=== PATIENT | female | born 1955 | race Caucasian/White ===

== ENCOUNTER → 2016-12-31 | Outpatient (CLI) | payer OTHER ==
[~2016-12-31] MED LIST: AMBIEN5 MG PO; CLIMARA PRO PA1 EACH TOP; COLACE100 MG PO; CORDARONE,PACE200 MG PO; DECADRON1 MG PO; DEPAKOTE EXTEN500 MG PO; EFFEXOR XR75 MG PO; ELAVIL10 MG; FIORICET PO; FIORINAL WITH1 EACH PO; KEPPRA500 MG PO; LOPRESSOR25 MG PO; MAXALT MLT10 MG PO; OSCAL + D500 MG PO; PEPCID20 MG PO; PHENERGAN25 M1 PO; RESTORIL30 MG PO; TAMBOCOR100 MG PO; THERA-VITE W/ B1 TAB PO; TOPROL XL25 MG PO; VIVISCAL PO; XARELTO20 MG PO
[2016-12-31 14:58] LABS: BASOPHIL % 0.2 %; EOSINOPHIL # 0.1 K/uL (0.0-0.5); EOSINOPHIL % 0.8 %; HEMATOCRIT 35.4 % (33.0-46.0); HEMOGLOBIN 11.9 g/dL (10.0-15.0); IMMATURE GRANULOCYTE % 0.3 %; LYMPHOCYTE # 1.9 K/uL (0.8-4.0); LYMPHOCYTE % 31.3 %; MCH 35.2 pg (27.0-34.0); MCHC 33.6 gm/dL (32.0-36.5); MCV 104.7 fl (83.0-98.0); MONOCYTE # 0.5 K/uL (0.0-1.0); MONOCYTE % 7.6 %; MPV 10.8 fl (9.4-12.4); NEUTROPHIL # (ANC) 3.7 K/uL (1.8-7.8); NEUTROPHIL % 59.8 %; NRBC % 0 /100WBC (0-0.00); PLATELET COUNT 185 K/uL (150-450); RBC 3.38 M/uL (3.50-5.50); RDW-CV 12.3 % (11.9-14.6); WBC 6.2 K/uL (4.0-11.0)
[2016-12-31 15:13] LABS: ALBUMIN 3.7 gm/dL (3.5-5.0); ANION GAP 12.4 (10.0-19.0); CALCIUM 8.2 mg/dL (8.5-10.5); POTASSIUM 4.4 mMol/L (3.7-5.1); TOTAL BILIRUBIN 0.4 mg/dL (0.0-1.5); TOTAL PROTEIN 6.8 g/dL (6.0-8.4)
== END | disposition disaster alternative care site (69) ==
LOC: GLAB 11-28 16:46
PROVIDERS: Psychiatry & Neurology Neurology
DX: G40.309 Generalized idiopathic epilepsy and epileptic syndromes, not intractable, without status epilepticus (principal)

== ENCOUNTER → 2017-02-15 | Outpatient (CLI) | payer OTHER ==
[2017-02-15 15:30] LABS: BASOPHIL % 0.2 %; EOSINOPHIL % 0.5 %; HEMATOCRIT 38.9 % (33.0-46.0); HEMOGLOBIN 13.1 g/dL (10.0-15.0); IMMATURE GRANULOCYTE % 0.2 %; LYMPHOCYTE # 2.3 K/uL (0.8-4.0); LYMPHOCYTE % 40.1 %; MCH 35.1 pg (27.0-34.0); MCHC 33.7 gm/dL (32.0-36.5); MCV 104.3 fl (83.0-98.0); MONOCYTE # 0.5 K/uL (0.0-1.0); MONOCYTE % 8.4 %; MPV 10.6 fl (9.4-12.4); NEUTROPHIL # (ANC) 2.9 K/uL (1.8-7.8); NEUTROPHIL % 50.6 %; NRBC % 0 /100WBC (0-0.00); PLATELET COUNT 185 K/uL (150-450); RBC 3.73 M/uL (3.50-5.50); RDW-CV 12.2 % (11.9-14.6); WBC 5.7 K/uL (4.0-11.0)
== END | disposition disaster alternative care site (69) ==
LOC: GLAB 14:55
PROVIDERS: Registered Nurse
DX: F41.9 Anxiety disorder, unspecified (principal)

== ENCOUNTER 2017-05-17 10:24 | Inpatient (IN) | payer OTHER ==
[~2017-05-17] VITALS: Ht 172.7 cm; Wt 56.8 kg
--- NOTE | ~2017-05-17 | CON ---
PATIENT'S NAME: GUANACO HUSSEIN [facility] AGE: 61 Y [address] ROOM: [place] [address] LOCATION: GICU ADMIT DATE: 05/17/2017 Consultation DISCHARGE DATE: FAMILY PHYSICIAN: Shelby Garcia APRN ATTENDING PHYSICIAN: Deedee Wade REFERRING PHYSICIAN: SUNIL MARION MD REFERRING PHYSICIAN: Dr. Wade. REASON FOR CONSULT: 1. Atrial fibrillation with uncontrolled ventricular rate. 2. Hypotension, requiring inotropic support. HISTORY OF PRESENT ILLNESS: Ms. Hussein is a pleasant 61-year-old female who was recently hospitalized and patient underwent surgery on 05/22/2017 with excision of right frontal tumor, possibly glioblastoma. The patient was recently hospitalized 1 week ago as she was noted to have recurrent falls and unsteadiness of gait. Further workup showed she had right frontal mass and subsequently she had surgery. The patient also has history of paroxysmal atrial fibrillation and she was on flecainide. The patient continued to have atrial fibrillation and hence flecainide was discontinued. Presently, she is in atrial fibrillation. Her blood pressure has been low and hence she has been on phenylephrine drip as well. She denied any chest pain. No history of palpitations. No history of increasing shortness of breath. She complained of headache. Cardiology was consulted in view of atrial fibrillation with rapid ventricular rate and hypotension. REVIEW OF SYSTEMS: The patient complained of headache. No history of diplopia. No history of nausea or vomiting or diarrhea or constipation. No history of fever. No history of chest pain. No history of difficulty breathing. The patient complained of unsteadiness of gait and history of recurrent falls. Review of other systems was essentially negative. PAST MEDICAL HISTORY: Paroxysmal atrial fibrillation, seizures, orthostatic hypotension. ALLERGIES: SHE IS ALLERGIC TO TOPAMAX. MEDICATIONS: As per MAR. FAMILY HISTORY: PATIENT'S NAME: GUANACO HUSSEIN [facility] AGE: 61 Y [address] ROOM: [place] [address] LOCATION: [facility] ADMIT DATE: 05/17/2017 Consultation DISCHARGE DATE: FAMILY PHYSICIAN: Shelby Garcia APRN ATTENDING PHYSICIAN: Deedee Wade Her mother had atrial fibrillation and her father was hypertensive and some of her siblings also have atrial fibrillation. SOCIAL HISTORY: The patient is . PERSONAL HISTORY: Nonsmoker. PHYSICAL EXAMINATION: GENERAL: She is awake, alert, and oriented and in no distress. VITAL SIGNS: Her pulse rate is 110 beats per minute, irregular. Blood pressure is 104/62, on phenylephrine 0.06 mcg/kg per minute. HEENT: The patient has dressing on right side of her forehead. Opening of her right eye is restricted. Oral mucosa is moist. NECK: No significant jugular venous distention is present. CARDIOVASCULAR: S1 and S2 are audible. They are irregular in rate and rhythm. RESPIRATORY: Bilateral vesicular breath sounds are audible. ABDOMEN: Soft, nontender. Bowel sounds are present. EXTREMITIES: Showed no significant pedal edema. NEUROLOGIC: The patient is awake, alert, and oriented. SKIN: Warm and dry. LABORATORY DATA: Sodium 140, potassium 3.8, chloride 103, CO2 32, BUN 13, creatinine 0.5, calcium 7.8. Albumin 2.4, globulin 3.3, AST 41, ALT 67, magnesium 2.4. White blood cell count 15.7, hemoglobin 11.1, platelet count 220. Telemetry monitoring tracings show atrial fibrillation with episodes of tachycardia with ventricular rate of 140 to 150 beats per minute. Presently on monitor, her heart rate is 116 per minute. Her most recent echocardiogram done on 06/30/2015 reported ejection fraction of 50% to 55%. Mild mitral regurgitation and mild tricuspid regurgitation was noted. ASSESSMENT: 1. Atrial fibrillation with rapid ventricular rate. 2. Hypotension on vasopressors. 3. History of hypertension. 4. Right frontal tumor status post surgery. 5. Leukocytosis. PLAN: In view of hypotension, beta-blockers are on hold. We will start the patient on digoxin for rate control. She was on flecainide in the past. However she PATIENT'S NAME: GUANACO HUSSEIN [facility] AGE: 61 Y [address] ROOM: [address] [place], [place] [address] LOCATION: [facility] ADMIT DATE: 05/17/2017 Consultation DISCHARGE DATE: FAMILY PHYSICIAN: Shelby Garcia APRN ATTENDING PHYSICIAN: Deedee Wade used to have atrial fibrillation and hence flecainide was discontinued. Hypotension is likely multifactorial including due to changes in intracranial pressure and leukocytosis suggestive of possible sepsis. We will also obtain 2D echocardiogram to evaluate left ventricular function in view of hypotension. The patient was on Xarelto in the past for stroke prevention. We will restart anticoagulation when it is okay from neurosurgical aspect since she had recent surgery. Management of intracranial tumor per Neurosurgery. The plan of care was discussed with the patient and her . We will follow the patient along with you. Thank you for allowing us in taking part in the care of this pleasant patient. MD KIERA MILLAN/asya /[id number] d: 05/24/17 1535 t: 05/31/17 1614, CONSULTATION REPORT
--- NOTE | ~2017-05-17 | ER ---
PATIENT'S NAME: GUANACO HUSSEIN [facility] AGE: 61 Y [address] ROOM: [place] [address] LOCATION: [facility] ADMIT DATE: 05/17/2017 ER/Outpatient Report DISCHARGE DATE: FAMILY PHYSICIAN: Shelby Garcia APRN ATTENDING PHYSICIAN: TRUMAN VILLANUEVA Time of Arrival: 1024 hours. Time Seen: 1050 hours. IDENTIFICATION: A 61-year-old female. CHIEF COMPLAINT: Dizziness and confusion. 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 History is obtained from both her and her . She has had some dizziness and confusion, worse the last 3 days, but really starting about 3 weeks ago, got more acute on Saturday, saw Dr. Mejia on Saturday, was being scheduled for an outpatient MRI. She has had leg tremors and slurred speech. She has had some dizziness and near syncopal episodes, difficulty talking, slow slurred speech, and her said just getting ready to go in and be seen in the clinic today. The process started about 6 a.m. and he just could not get her there to her appointment. She is just slow to respond. She does answer questions, but at times, does appear somewhat confused. ALLERGIES: TOPAMAX. CURRENT MEDICATIONS: 1. Restoril 30 mg at h.s. for sleep. 2. Fioricet with Codeine as needed for migraine headaches. 3. Flecainide 100 mg b.i.d. 4. Calcium with vitamin D 1500 mg t.i.d. 5. Multivitamin daily. 6. Effexor XR 75 mg daily. 7. Xarelto 20 mg daily. 8. Phenergan p.r.n. 9. Lopressor 12.5 mg daily, just recently cut down from 25 mg due to some orthostatic hypotension, but she did take a full 25 today. 10. Depakote at h.s. MEDICAL PROBLEMS: History of insomnia; osteoporosis; atrial fibrillation; seizure disorder, last PATIENT'S NAME: GUANACO HUSSEIN [facility] AGE: 61 Y [address] ROOM: [place] [address] LOCATION: [facility] ADMIT DATE: 05/17/2017 ER/Outpatient Report DISCHARGE DATE: FAMILY PHYSICIAN: Shelby Garcia APRN ATTENDING PHYSICIAN: TRUMAN VILLANUEVA seizure 25+ years ago; hypertension; migraine headaches; depression and anxiety; irritable bowel syndrome; degenerative disk disease; seasonal allergic rhinitis; osteoporosis. PRIOR SURGERIES: D and C, hernia repair, and right thumb surgery. SOCIAL HISTORY: The patient lives here in [place]. 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 She is . Tobacco use, denies. Alcohol use, maybe one time per week. Drug use, denies. REVIEW OF SYSTEMS: All systems reviewed and as noted in the HPI. FAMILY HISTORY: Mother with mitral valve replacement due to rheumatic fever. PHYSICAL EXAMINATION: VITAL SIGNS: Height 5 feet 8 inches, weight 58.9 kg, blood pressure 113/57, pulse 61, respirations 22, temperature 97, and saturations 95% on room air. GENERAL: A 61-year-old female, in no acute distress, but she is slow to respond, generalized weakness, just some slurred speech, and intermittent confusion. HEENT: Head: Normocephalic, atraumatic. Ears: TMs are translucent both ears. Eyes: Pupils are equal and reactive to light and accommodation. Extraocular movements intact. Nose: Mucosa pink. No lesions. Mouth: No lesions. Pharynx benign. NECK: Supple. No lymphadenopathy. No thyromegaly. No JVD. No carotid bruits. LUNGS: Clear to auscultation. Breath sounds are equal. No rhonchi, wheezes, or rales. HEART: Regular rate and rhythm. No murmur, rub, or gallop. ABDOMEN: Bowel sounds are present. Soft, nondistended. No hepatosplenomegaly. No palpable masses. Nontender. SKIN: [place], warm, and dry. No lesions or rashes noted. NEURO: The patient is alert. She is oriented at this time. Cranial nerves 2 through 12 are grossly intact. Motor strength is 5/5 throughout. Sensation is intact to light touch. The patient does later on states she has had a right-sided headache more lately than she has noted before and she has had some slight nausea. She has no lower extremity edema, no calf tenderness. LABORATORY DATA: Chest x-ray, no acute process, pending Radiology over-read. Head CT without contrast: Large irregular mass in the right frontal lobe with adjacent edema PATIENT'S NAME: GUANACO HUSSEIN [facility] AGE: 61 Y [address] ROOM: [address] [place], [place] [address] LOCATION: [facility] ADMIT DATE: 05/17/2017 ER/Outpatient Report DISCHARGE DATE: FAMILY PHYSICIAN: Shelby Garcia APRN ATTENDING PHYSICIAN: TRUMAN VILLANUEVA and local mass effect with sulcal effacement, midline shift. Massive neoplastic origin either primary or metastatic is the major differential consideration. Sodium 136, potassium 4, chloride 96, CO2 32, BUN 17, creatinine 1, blood sugar 75. CPK 225, magnesium 2.4. Cardiac enzymes negative. TSH 2.970, hemoglobin 12.9, hematocrit 38.3. Platelets 271, white count 9.9 with a normal differential. INR 1.08, valproic acid 86. EKG: Sinus rhythm at 64 beats per minute. No acute ST elevation or depression. Prolonged QT with a QT corrected of 440, nonspecific ST-T wave changes. MRI count includes the [facility] protocol with and without contrast was ordered per Dr. Villanueva. Keppra 500 mg p.o. now and then b.i.d. ordered per Dr. Villanueva. IMPRESSION: 1. Large irregular mass in the right frontal lobe with adjacent edema, MRI pending. The patient admitted per Dr. Villanueva with Dr. Fulton consulting. 2. Dizziness and confusion, lightheaded secondary to large irregular mass. 3. History of atrial fibrillation, on chronic anticoagulation. She takes her Xarelto at h.s., last dose was last evening. 4. Migraine headaches. 5. Depression and anxiety. 6. Hypertension. 7. Seizure disorder. Last seizure 25+ years ago. SANJAY LUX MD CAR/modl /[id number] d: 05/18/17 0304 t: 05/19/17 0834, OUTPATIENT REPORT
--- NOTE | ~2017-05-17 | ECHO ---
Transthoracic Echocardiography Report (TTE) Demographics Patient Name GUANACO HUSSEIN Date of Study 05/24/2017 Patient Number [id number] Visit Number [id number] Date of 1955 Room Number G6229 Gender Female Number Age 61 year(s) Referring Reese Lunsford MD Software Business Analyst Jackie Caba Physician Mariaelena Edwards Physician Interpreting Mariaelena Edwards Opthalmic Tech Physician Supervising Ordering Physician Mariaelena Edwards MD/MLP Nurse Stress Meter And Service Line Inspector Conclusions Contractility Score Summary Normal Left Ventricular contractility was noted. Summary Limited study done to assess left ventricular systolic function in the setting of hypotension The estimated left ventricular ejection fraction is 60-65%. Procedure Type of Study TTE procedure:Echo Limited w/o Contrast. Procedure Date Date: 05/24/2017 Start: 02:45 PM Study Location: Inpatient Portable Technical Quality: Fair Indications:Hypotension. Additional Indications:A-fib Appropriate Use Criteria: 9 Patient Status: Routine Rhythm: Atrial fibrillation HR: 113 bpm BP: 132/60 mmHg Findings Left Ventricle Contractility Score LV regional wall motion:(0-Non visualized 1-Normal 2-Hypokinesis 3-Akinesis 4-Dyskinesis 5-Aneurysm) Signature dtt: DENA DECKER dtd: 05/24/17 1445 Physician Self Edit
--- NOTE | ~2017-05-17 | CON ---
PATIENT'S NAME: GUANACO HUSSEIN [facility] AGE: 61 Y [address] ROOM: [place] [address] LOCATION: GICU ADMIT DATE: 05/17/2017 Consultation DISCHARGE DATE: FAMILY PHYSICIAN: Shelby Garcia APRN ATTENDING PHYSICIAN: TRUMAN PERALTA REFERRING PHYSICIAN: SUNIL MARION MD CHIEF COMPLAINT: Unstable on feet, found to be confused by her and brought in. REASON FOR MEDICAL CONSULTATION: Medical management. 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 No associated weakness noted. She also reported some blurry vision. On further inquiry, she denied any headache, any trouble swallowing, any chest pain, any chest pressure or any shortness of breath, any abdominal pain, any burning on urination, or any extremity swelling recently. REVIEW OF SYSTEMS: All other systems reviewed and were negative, except what is mentioned in the HPI. ALLERGIES: THE PATIENT IS ALLERGIC TO TOPAMAX. PAST MEDICAL HISTORY: Paroxysmal atrial fibrillation, multiple syncopal episodes, distant seizure disorder, and history of migraine headaches. MEDICATIONS: The patient is currently on Xarelto. Rest of the medications are being reconciled right now. SOCIAL HISTORY: Never a smoker. No alcohol or drug abuse. FAMILY HISTORY: Significant for congestive heart failure and valve replacement in mother. One PATIENT'S NAME: GUANACO HUSSEIN [facility] AGE: 61 Y [address] ROOM: [place] [address] LOCATION: GICU ADMIT DATE: 05/17/2017 Consultation DISCHARGE DATE: FAMILY PHYSICIAN: Shelby Garcia APRN ATTENDING PHYSICIAN: TRUMAN PERALTA of the siblings had atrial fibrillation and ablation done. PHYSICAL EXAMINATION: VITAL SIGNS: Blood pressure 113/57, temp 97, respiratory rate of 22, pulse of 61. GENERAL: No acute distress. Alert and oriented x3. HEENT: Head: Atraumatic, normocephalic. Eyes: Nonicteric. No pallor. Oropharynx: Moist mucous membranes. CARDIOVASCULAR: S1, S2. Variable intensity S1. No murmurs, gallops, or rubs. LUNGS: Clear to auscultation bilaterally. ABDOMEN: Soft, nontender, and nondistended. Bowel sounds present. Hormone replacement therapy patch under the left lower quadrant noted. EXTREMITIES: No clubbing, cyanosis, or edema noted. PSYCHIATRIC: Slow and low-volume speech. Flat affect and mood. NEUROLOGIC: Cranial nerves 2 through 12 grossly intact. No focal sensory deficit noted on the physical exam today. LYMPHATICS: No lymphangiitis or lymphadenopathy. ENDOCRINE: No thyromegaly or cushingoid features noted. LABORATORY DATA: A lab work was done in the emergency department which showed negative urinalysis and normal CMP with mildly elevated CPK at 225. Chest x-ray was done, which was unremarkable. Valproic acid levels were 86, and CBC was also done which was also unremarkable. INR was 1.08. CT of the head was done, which did show right-sided frontal lobe mass. ASSESSMENT AND PLAN: 1. Paroxysmal atrial fibrillation. 2. Brain mass. 3. History of syncope. PLAN: 1. This patient is being admitted under neurosurgical services. There is a strong suspicion of brain tumor, and an MRI to characterize the anatomy has been ordered. Xarelto is being held right now in anticipation of the craniotomy and surgical resection. 2. Atrial fibrillation with controlled ventricular rates. Xarelto will be held for this anticipated surgery. We will obtain medical records from Dr. Merrill's office as well as Dr. Molina's office from [place]. Probably, I was told her last echo was normal. She also reported that she did not have any trouble climbing two flights of stairs in terms of shortness of breath or chest pain. Her EKG does not show any acute changes from the previous EKG from 2015. Both showed atrial fibrillation with controlled ventricular rates without any acute ST-T wave changes. PATIENT'S NAME: GUANACO HUSSEIN [facility] AGE: 61 Y [address] ROOM: [place] [address] LOCATION: [facility] ADMIT DATE: 05/17/2017 Consultation DISCHARGE DATE: FAMILY PHYSICIAN: Shelby Garcia APRN ATTENDING PHYSICIAN: TRUMAN PERALTA We will follow this patient. Thank you for involving us in the care of this patient. MD KAYLA MALIN/asya /[id number] d: 05/17/17 2258 t: 05/27/17 0831, CONSULTATION REPORT
--- NOTE | ~2017-05-17 | OR ---
PATIENT'S NAME: GUANACO HUSSEIN [facility] AGE: 61 Y [address] ROOM: [place] [address] LOCATION: GICU ADMIT DATE: 05/17/2017 OR/Procedure Report DISCHARGE DATE: FAMILY PHYSICIAN: Shelby Garcia APRN ATTENDING PHYSICIAN: Deedee Wade SURGEON: Deedee Wade MD SINTERING PLANT SUPERVISOR: DATE OF PROCEDURE: 05/22/2017 PREOPERATIVE DIAGNOSIS: Right frontal tumor, query glioblastoma. POSTOPERATIVE DIAGNOSIS: Right frontal tumor, query glioblastoma. OPERATIONS PROPOSED AND PERFORMED: 1. Right frontal craniotomy and microsurgical gross total excision of tumor. 2. Microscope. 3. Stealth neuronavigation. 4. Ultrasound. 5. Application of Caal head clamp. DESCRIPTION OF PROCEDURE: Under general anesthesia, the patient was positioned supine with the head tilted to the left. The right frontal region was then shaved, prepped, and draped in the usual manner. Next, the [employer] system was registered onto the computer. Next, with this, we were able to delineate the limits of both the anterior as well as the posterior extension of the tumor, which did guide the craniotomy that we carried out. Next, a curvilinear incision was then carried out extending from the zygoma all the way up just a bit superior to the ear and then superiorly to the midline and then anteriorly to the frontal region. It is almost like a partial? incision. The temporalis muscle and fascia as well as the pericranium were reflected as a unit and these were kept in position using fishhooks. Next, 4 chuy holes were then carried out and a free frontal bone flap was then fashioned out. After this was done, we then used the [employer] neuronavigational system to see where the lesion was closest to the surface. When we determined that, we went ahead and made a cerebrotomy and it did not take long to get to the tumor. We took specimens and sent it for frozen section and the frozen section report was that this was a malignant lesion. Next, we then brought in the microscope. With the aid of the microscope, we started debulking the tumor and since the tumor was arising from the floor of the anterior cranial fossa, we were able to go all the way to the floor of the anterior cranial fossa. The tumor was just resting, so we had to remove all the tumor which was lying on the floor of the anterior cranial fossa. We were able to completely excise this part of the tumor and then we continued with the excision posteriorly and to the midline. The Stealth neuronavigational system was quite helpful, in that it enabled us to delineate the boundaries of the tumor. Prior to starting the PATIENT'S NAME: GUANACO HUSSEIN [facility] AGE: 61 Y [address] ROOM: [address] [place], [place] [address] LOCATION: [facility] ADMIT DATE: 05/17/2017 OR/Procedure Report DISCHARGE DATE: FAMILY PHYSICIAN: Shelby Garcia APRN ATTENDING PHYSICIAN: Deedee Wade craniotomy, we had given the patient mannitol and consequently by the time we opened the dura, which we opened and reflected towards the midline, there was no shift laterally and the only shift one could limit was more medial than lateral. With the aid of the Stealth, which we used multiple times to assist us with gross total removal, we were able to not only just debulk the tumor, but also grossly remove the tumor. The tumor was extremely vascular, however, we were able to control the bleeding by using bipolar cautery and we also used Surgicel and soaked in thrombin. At the end, this still did indicate that we were posterior to the posterior limit of the tumor and also we were on the anterior as well as the inferior and the medial boundaries of the tumor using the Stealth neuronavigational system. We, however, did inspect grossly where we were and the debulking or the removal of the tumor was not based solely on the Stealth, but also on the gross appearance of the tissue that we were excising. After this had been carried out, we then brought in the ultrasound and with the ultrasound we really could not see any evidence of residual tumor. We then lined the wall of the empty cavity that we had created with Surgicel and at the end, there was a big hole left behind after we had excised the tumor. Next, the dura was closed using 3-0 Nurolon and then we put a piece of DuraGen over the dura. Next, the bone flap was then fixed to the rest of the skull using the [employer] plates and the scalp was then closed in the usual 2 layer fashion. The patient tolerated the procedure well and was taken to the recovery room, and then from the recovery room before sending her to ICU, we went ahead and got an MRI of the brain with and without contrast. MD BRITTANY RODAS/asya /[id number] d: 05/23/17 0122 t: 06/07/17 1241, OPERATIVE SUMMARY
--- NOTE | ~2017-05-17 | CON ---
PATIENT'S NAME: GUANACO HUSSEIN [facility] AGE: 61 Y [address] ROOM: [id number] [place], [place] [address] LOCATION: [facility] ADMIT DATE: 05/17/2017 Consultation DISCHARGE DATE: FAMILY PHYSICIAN: Shelby Garcia APRN ATTENDING PHYSICIAN: Deedee Wade REFERRING PHYSICIAN: SUNIL MARION MD HISTORY OF PRESENT ILLNESS: I was asked to see this lady for a second opinion. She is a 61-year-old female who was admitted to the hospital on Saturday. She presented with a 6-week history of having difficulty with balance and also speech became quite deliberate. She was occasionally saying some swearing words, which is unusual for her. In addition, she also complained of headaches, though she has had a history of migraine headaches, which seemed to have been controlled on medications, but this time around she started noticing that it was different from the regular migraine headaches. She also did complain of episode of dizziness on Saturday and usually when she feels that, it occurs when she has atrial fibrillation. She has paroxysmal atrial fibrillation. However, this time around was different, she just feel dizzy and fell, hitting the left side of her face on the ground. A relevant portion of history is that she is on Xarelto for the atrial fibrillation and last time she took the medication was on last Saturday. She has a history of orthostatic hypotension and on Saturday this symptom got so bad that she could not wait for the elective appointment in the clinic, ended up in the emergency room where a CT scan was done. The CT scan showed that she had a large right frontal tumor, however, she denied any weakness in her upper or lower extremities. She also denied any numbness or tingling in the upper or lower extremities. She has a history of seizures, which has been reasonably well controlled on Depakote. In this episode, she really has not had any seizures. On admission, she was put on Decadron that significantly improved her symptoms and she is feeling a lot better. At the present time, her speech is literally back to normal and her gait and balance are back to normal. PAST MEDICAL HISTORY: She has had history of paroxysmal atrial fibrillation. She has also had history of seizures and orthostatic hypotension. ALLERGIES: SHE IS ALLERGIC TO TOPAMAX. MEDICATIONS: See the list in the chart. FAMILY HISTORY: Mother had atrial fibrillation. Father was hypertensive and had atherosclerosis. Had an aunt with multiple myeloma. PATIENT'S NAME: GUANACO HUSSEIN [facility] AGE: 61 Y [address] ROOM: [id number] [place], [place] [address] LOCATION: [facility]ICU ADMIT DATE: 05/17/2017 Consultation DISCHARGE DATE: FAMILY PHYSICIAN: Shelby Garcia APRN ATTENDING PHYSICIAN: Deedee Wade REVIEW OF SYSTEMS: Apart from the abnormalities noted in the history of present condition, the rest of the review of systems was essentially negative. PHYSICAL EXAMINATION: GENERAL: On examination in the hospital, she is a 61-year-old lady, who was awake, she was alert. [place] coma score was 15. She answered questions appropriately. VITAL SIGNS: She is 5 feet and 8 inches tall, 53.4 kg in weight, her blood pressure was 113/56, pulse was 75 and was regular, respirations 15, and temperature 98 orally. HEENT: She is normocephalic except for some area of ecchymosis especially in the inferior portion of the left eye. NECK: There was no tenderness on palpating cervical spinous processes. There was no restriction of movement of the cervical spine. CHEST: Clear. HEART: Heart rate was regular. ABDOMEN: Soft. NEUROLOGIC: The cranial nerve examination was normal. The motor examination was normal. The sensory exam was normal. Reflexes were normal. Toes were downgoing bilaterally. There was no sensory inattention. Visual cary were normal to confrontation. Her speech was normal. IMPRESSION: Right frontal tumor, most likely glioblastoma multiforme. RECOMMENDATIONS: My recommendation is that she will need to have the tumor excised; however, recommend that since she has responded well to the Decadron, one could wait until at least a week after she taken the last dose of Xarelto before taking her to surgery. After discussing the situation and telling her what my thoughts are, she and her insisted on me doing the surgery. I consequently explained this to Dr. Villanueva and will make arrangements for this to be carried out. I also did explain to in the hospital that we will plan to do this on Saturday and that I will be leaving town on , but I will see her before leaving on . She is comfortable with that and wants us go ahead on Saturday and would still want me to be the one doing the case. Arrangements have been made for that and in addition I am going to get a functional MRI on her to give me an idea of where the area is as well as speech and we will take it from there. The problems with her gait could be related to some weakness of the lower extremities secondary to edema rather than tumor compression and that also could apply to the speech. PATIENT'S NAME: GUANACO HUSSEIN [facility] AGE: 61 Y [address] ROOM: [place] [address] LOCATION: [facility] ADMIT DATE: 05/17/2017 Consultation DISCHARGE DATE: FAMILY PHYSICIAN: Shelby Garcia APRN ATTENDING PHYSICIAN: Deedee Wade MD BRITTANY RODAS/asya /[id number] d: 05/20/17 2359 t: 06/07/17 1238, CONSULTATION REPORT
--- NOTE | ~2017-05-17 | CONS ---
PATIENT'S NAME: GUANACO HUSSEIN [facility] AGE: 61 Y [address] ROOM: [place] [address] LOCATION: GICU ADMIT DATE: 05/17/2017 Oncology Report DISCHARGE DATE: FAMILY PHYSICIAN: Shelby Garcia APRN ATTENDING PHYSICIAN: Deedee Wade RADIATION THERAPY CONSULTATION DATE OF SERVICE: REFERRING PHYSICIAN: SUNIL MARION MD DIAGNOSIS: Glioblastoma. Dear Doctor: Mrs. Guanaco Hussein was seen today in routine inpatient consultation. As you recall, this is a 61-year-old white female, who started having problems with dizziness and confusion going back roughly a month. The patient indicated that she was having some dizziness, confusion, had been seen by Dr. Mejia, and had been scheduled for an outpatient MRI. However, prior to the MRI, she started having increasing complaints of dizziness, had some troubles with leg tremors and slurred speech, dizziness, and difficulty talking. The patient was brought in and work up ensued. Scans indicated the patient had a right frontal tumor. Thereafter, the patient underwent a surgical excision under Dr. Wade's care. Pathology has come back as a glioblastoma. Postoperatively, the patient appears to have had near-complete excision on a repeat MRI with some potential residual areas of disease posterior medially. The patient has recovered well from her surgery. We are waiting markers on the patient's tumor at this time. When seen today, the patient is lying in bed, eating breakfast. Her daughter is in the room, she has been seen by Dr. Gutierrez in Medical Oncology. She is alert. She is oriented. Indicates that she is feeling well and indicates that she had had some headaches, but this is a longstanding issue. The patient does give a history of atrial fibrillation and did have seizures approximately 25 years ago. ALLERGIES: THE PATIENT HAS ALLERGIES TO TOPAMAX. CURRENT MEDICATIONS: 1. Benadryl. 2. Cordarone. PATIENT'S NAME: GUANACO HUSSEIN [facility] AGE: 61 Y [address] ROOM: [place] [address] LOCATION: GICU ADMIT DATE: 05/17/2017 Oncology Report DISCHARGE DATE: FAMILY PHYSICIAN: Shelby Garcia APRN ATTENDING PHYSICIAN: Deedee Wade 3. Decadron. 4. Lopressor. 5. Dilaudid. 6. Keppra. 7. Xarelto. 8. Pepcid. 9. Tylenol. 10. Colace. 11. MiraLAX. 12. Depakote. 13. Restoril. 14. Maxalt. 15. Effexor. 16. Os-Sumanth D. 17. Theravite. 18. Phenergan. 19. Reglan. 20. Apresoline. 21. Trandate. PAST MEDICAL HISTORY: Positive for insomnia, osteoporosis, atrial fibrillation, seizure disorder with the last seizure having occurred 25 years ago, hypertension, migraine headaches, depression, anxiety, irritable bowel syndrome, degenerative disc disease, allergies, and osteoporosis. PAST SURGICAL HISTORY: Positive for D and C, hernia repair, right thumb surgery, and most recently right craniotomy. SOCIAL HISTORY: The patient is lives in [place], [place]. 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 The patient is . Her is a senior science consultant. The patient has 2 children, a son and a daughter. The daughter lives in [place]. The patient denies any tobacco use. Indicates she will drink alcohol socially. She denies any intravenous drug use. No previous history of radiation therapy or chemotherapy. FAMILY HISTORY: The patient indicates that her maternal aunt recently secondary to melanoma. REVIEW OF SYSTEMS: GENERAL: The patient had had a history of headaches. She did have some dizziness issues. PATIENT'S NAME: GUANACO HUSSEIN [facility] AGE: 61 Y [address] ROOM: [id number] [place], [place] [address] LOCATION: [facility] ADMIT DATE: 05/17/2017 Oncology Report DISCHARGE DATE: FAMILY PHYSICIAN: Shelby Garcia APRN ATTENDING PHYSICIAN: Deedee Wade VISION: The patient indicates that she has had some blurry vision. It is unclear whether this is postsurgery or not. HEENT: She denies any problems with hearing. She denies any problems with speech. The patient denies any problems with her oral cavity. NECK: No complaints of neck pain. LUNGS: No problems with her lungs noted. COR: No complaints of left arm pain or chest pain. ABDOMEN: No problems with her GI tract. No problems with blood in her stool. : No problems with passing her urine. EXTREMITIES: The patient gives a history of osteoporosis. NEUROLOGIC: The patient with a recent neurological changes dizziness and headaches. See HPI. ENDOCRINE: No history of thyroid disease or diabetes noted. UTILITY BAGGER: No complaints of vaginal discharge. PHYSICAL EXAMINATION: VITAL SIGNS: Include a temperature of 97.7, pulse of 76, weight of 60 kg, and blood pressure 114/62. GENERAL: A well-developed, well-nourished, white female, in no apparent distress. HEAD AND NECK: Normocephalic and atraumatic. The patient has a healed surgical scar noted in the right frontal area which is covered over by her hair. No shaw are present at this time. No areas of breakdown. No areas of infection. Extraocular motions are intact. No nystagmus is noted. Oral cavity without masses or mycotic lesions. The patient has normal tongue motion with regard to her ability to move the tongue to the left and right upon command. Hearing appears to be within normal limits. Neck with no masses noted. NEUROLOGIC: The patient is alert and oriented x3. Cranial nerves are grossly normal. MUSCULOSKELETAL: Muscle strengths are 5/5 and symmetric in the upper and lower extremities. We did not attempt to walk the patient. MINI MENTAL EXAM: The patient was able to remember 2 out of 3 things at 5 minutes. She knows which year it is, who the president is, and where she is. She is able to do serial 3 subtractions easily. She was able to interpret parables correctly. This concluded the limited physical exam of this patient. LABORATORY DATA AND DIAGNOSTIC DATA: The patient had a CT of the head done on 05/17/2017, which revealed a large irregular mass in the right frontal lobe with adjacent edema and local mass effect with sulcal effacement and midline shift. The patient subsequently had an MRI done. MRI revealed a large heterogeneous solid cystic mass in the right frontal lobe measuring 60 x 51 x 42 mm thick irregular enhancing wall. Mass PATIENT'S NAME: JOVITA GUANACO A [facility] AGE: 61 Y [address] ROOM: [id number], [place] [address] LOCATION: [facility] ADMIT DATE: 05/17/2017 Oncology Report DISCHARGE DATE: FAMILY PHYSICIAN: Shelby Garcia APRN ATTENDING PHYSICIAN: Deedee Wade effect was noted. Effacement of the frontal horn on the right lateral ventricle producing leftward midline shift of 18 mm was noted. The impression indicated that the diagnosis favored a high-grade primary CORE DRILL OPERATOR neoplasm. The patient did undergo a surgical resection on 05/22/2017. Pathology has come back as glioblastoma. ICD 10. IMPRESSION: A 61-year-old white female with a new diagnosis of glioblastoma status post resection with possible minimal residual disease as seen on postoperative scans. PLAN: We discussed with the patient and her daughter the options available to her. Indicated to her that the standard of care would be for her to receive radiation therapy with concomitant chemotherapy. Indicated she would be treated for a 6-week period of time to the affected area with Temodar as well as radiotherapy to be followed possibly by adjuvant Temodar. The patient and her daughter understood the conversation. They asked appropriate questions. These were answered to their satisfaction. As such, we left that we will contact the patient and bring her down for CT simulation in the near future. We will take her pre and postoperative scans and use them to help delineate the volume to be treated. Appropriate margins will be placed around the tumor volume and we would anticipate treating the patient for a 6 week period of time to a dose of 6000 cGy in 200 cGy fractions using an IMRT technique as per NCCN guidelines. We thank you for allowing us to consult on this most pleasant patient. Sincerely, LEILANI JONES MD, PHD FZL/modl /[id number] CC: MD Shelby Salcedo APRN PATIENT'S NAME: GUANACO HUSSEIN [facility] AGE: 61 Y [address] ROOM: [id number] [place], [place] [address] LOCATION: [facility] ADMIT DATE: 05/17/2017 Oncology Report DISCHARGE DATE: FAMILY PHYSICIAN: Shelby Garcia APRN ATTENDING PHYSICIAN: Deedee Wade MD Adeleke E Badejo, MD d: 06/04/17 1542 t: 06/16/17 1008, CONSULTATION REPORT
--- NOTE | ~2017-05-17 | CON ---
PATIENT'S NAME: GUANACO HUSSEIN [facility] AGE: 61 Y [address] ROOM: [id number] [place], [place] [address] LOCATION: GICU ADMIT DATE: 05/17/2017 Consultation DISCHARGE DATE: FAMILY PHYSICIAN: Shelby Garcia APRN ATTENDING PHYSICIAN: Deedee Wade REFERRING PHYSICIAN: SUNIL MARION MD Consult for Dr. Wade. 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 Wade for rehab/GIRP evaluation. 1. She is status post right frontoparietal craniotomy and microsurgical gross total excision of tumor of the brain. 2. Use of microscope. 3. Stealth navigation. 4. Ultrasound. 5. Application of Caal head clamps on 05/22/2017, details on record. She had history of multiple syncope episodes and paroxysmal atrial fibrillation on Xarelto and had history of migraine headaches. She presented at this time to ER with unstable gait of about 6 weeks' duration with multiple falls. Per her , she is acting strangely, not to her self. Per her , she was nauseated without vomiting. Denied any weakness per se. She reported having some blurred vision on and off. No real headaches. No difficulty swallowing. No shortness of breath. No chest pain. No abdominal pain. No difficulty with her bowel and bladder. Now, she is alert, oriented. She can comprehend, express self well, has slight slurring of speech. Soft palate and tongue are moving symmetrical. No facial droop. No visual cut or neglect. VITAL SIGNS: Blood pressure 108/61, temperature 97.9, pulse 92, respirations 16. She is 5 feet 8 inches tall and weighs 57.6 kg. She can move all four; however, she seems to me to be slightly weak with the left upper and lower extremity. She is unsteady at risk of falling. She is at the present time able to ambulate up to 200 feet with handheld or front wheeled walker, slowly but definitely unsteady. MEDICATIONS: She is on the following medications. 1. Metoprolol is for tachycardia and food service technician is working on stabilizing PATIENT'S NAME: GUANACO HUSSEIN [facility] AGE: 61 Y [address] ROOM: [id number] [place], [place] [address] LOCATION: [facility] ADMIT DATE: 05/17/2017 Consultation DISCHARGE DATE: FAMILY PHYSICIAN: Shelby Garcia APRN ATTENDING PHYSICIAN: Deedee Wade her to sinus rhythm. 2. Dexamethasone. 3. Digoxin. 4. Dilaudid. 5. Keppra. 6. Xarelto. 7. Pepcid. 8. Tylenol. 9. Colace. 10. MiraLAX. 11. NaCl 0.9%. 12. Cardizem. 13. Depakote. 14. Risperdal. 15. Maxalt-WEED SPRAYER. 16. Effexor. 17. Theravite. 18. Os-Sumanth. 19. Phenergan. 20. Reglan. 21. Apresoline. 22. Labetalol. ASSESSMENT AND PLAN: I feel this lady will benefit from intensive rehabilitation of about 10 to 14 days aiming to discharge home at modified independence. She remains at high risk of falling. She should not drive and/or operate any mechanical device until she is evaluated. I will continue her on PT, OT, Speech which has already been initiated. I feel that at the present time she is high risk of falling and hurting herself. I will take her when her heart is more stable. I did discuss all this with food service technician and with Dr. Wade. Thank you for this referral. I will take her as soon as she is okayed. MD DARCY MCKEON/asya /[id number] d: 05/29/171654 t: 05/30/17700, CONSULTATION REPORT
--- NOTE | ~2017-05-17 | HP ---
PATIENT'S NAME: GUANACO HUSSEIN [facility] AGE: 61 Y [address] ROOM: [id number] [place] [address] LOCATION: GICU ADMIT DATE: 05/17/2017 History & Physical DISCHARGE DATE: FAMILY PHYSICIAN: Shelby Garcia APRN ATTENDING PHYSICIAN: TRUMAN PERALTA DATE OF SERVICE: 05/17/2017 CHIEF COMPLAINT: Right frontal intra-axial brain tumor. HISTORY OF PRESENT ILLNESS: The patient is a 61-year-old right-handed female patient, who works as a pharmacist here in the hospital. She has been complaining of increasing confusion, unsteady gait, speech difficulties, and dizziness, as well as headaches for a few months. Those symptoms have been progressively getting worse. According to the patient and her , she had frequent falls, and one of them resulted in significant injuries. She was seen by a neurologist last week, and she was supposed to have a brain MRI next week. Today, the patient was brought to the Emergency by her as her symptoms continued to worsen. She was examined by the Emergency physician, and a non-contrast CT of head was done. The scan showed evidence of a very large right frontal intra-axial mass with significant vasogenic edema and midline shift. I was consulted to assess the patient. I met the patient in the presence of her in the Emergency. She confirmed the history. She also reported speech difficulties. The patient denied visual disturbances. She denied obvious weakness on her extremities. She denied numbness on her extremities. The patient is known to have seizure disorder, and the last seizure was 18 years ago. Her seizures are controlled on valproic acid. She denied recent seizures. She denied loss of consciousness. She denied fever and chills. She denied back pain, abdominal pain, and chest pain. PAST MEDICAL AND SURGICAL HISTORY: 1. Atrial fibrillation. 2. Seizure disorder. 3. D and C. 4. Hernia surgery. MEDICATIONS: Listed in the patient's chart. The patient takes Xarelto 20 mg a day for atrial fibrillation. The last dose was taken yesterday. ALLERGIES: PATIENT'S NAME: GUANACO HUSSEIN [facility] AGE: 61 Y [address] ROOM: [id number] [place], [place] [address] LOCATION: GICU ADMIT DATE: 05/17/2017 History & Physical DISCHARGE DATE: FAMILY PHYSICIAN: Shelby Garcia APRN ATTENDING PHYSICIAN: TRUMAN PERALTA. FAMILY HISTORY: The patient has four brothers. No history of brain tumors. SOCIAL HISTORY: She denies smoking and frequent alcohol intake. REVIEW OF SYSTEMS: All points review of systems were asked about. Pertinent positives were mentioned in the HPI. PHYSICAL EXAMINATION: GENERAL: The patient was cooperative and pleasant. VITAL SIGNS: The patient was afebrile. HEENT: Showed bruising under the left eye. No other external signs of trauma. The pupils were 3 mm and reactive. Sclerae examination was normal bilaterally. Mouth and Throat: No mucosal lesions. NECK: No tenderness to palpation. No palpable masses. The neck range of motion was painless. RESPIRATORY: She was not in any respiratory distress. CARDIOVASCULAR: She had palpable pulses on the upper extremities. LYMPHATIC: No cervical lymphadenopathy. BACK: Not done. ABDOMEN: Not done. NEUROLOGICAL: Gait: She was unsteady. She needed one person assist to ambulate. She was alert, oriented to time, place, and person. She had some confusion about the day of the week. Her speech was slow, and I thought she had word-finding difficulties. She followed 1 and 2-step commands. She named 3/3 objects. Her pupils were 3 mm and reactive. Face was symmetric. Facial sensation was symmetric to light touch and normal. She had no pronator drift on the upper extremities. She had [id number] left lower extremity proximal muscle weakness. She had no sensory neglect. INVESTIGATIONS: Non-contrast CT of head done on May 17, 2017, which I personally reviewed. It showed evidence of a very large right frontal lobe intra-axial mass with significant vasogenic edema and ukhgm-[id number] midline shift. The imaging findings are highly suspicious for a primary brain tumor. IMPRESSION: A 61-year-old female patient was presenting with increasing confusion, frequent falls, headaches, and speech difficulties. She was found to have a large right frontal intra-axial brain tumor. The image showed significant mass effect and midline shift. The patient's neurological examination is PATIENT'S NAME: GUANACO HUSSEIN [facility] AGE: 61 Y [address] [id number] [address] LOCATION: [facility] ADMIT DATE: 05/17/2017 History & Physical DISCHARGE DATE: FAMILY PHYSICIAN: Shelby Garcia APRN ATTENDING PHYSICIAN: TRUMAN PERALTA remarkable for speech difficulties and left lower extremity proximal muscle weakness. PLAN: 1. Admission to the hospital. 2. Add Keppra 500 mg b.i.d. 3. MRI of brain without and with contrast. 4. Dexamethasone 4 mg p.o. every six hours. 5. Blood pressure control. I reviewed the available imaging with the patient and her , and pointed out the abnormalities seen. I then discussed the differential diagnoses for this including primary and secondary brain tumors. Given the size of the tumor and its appearance on imaging, I highly suspect that this tumor is most likely primary brain tumor. I then discussed my plan with both of them. I clearly indicated that the brain MRI is needed at first to better delineate the tumor and the anatomy. I also indicated that she will be started on dexamethasone to help with vasogenic edema. The patient and her asked appropriate questions, and those were answered to their satisfaction. The patient was interested in proceeding with the treatment plan, so she was admitted to the hospital. It was a pleasure taking care of this patient, and thanks for having us involved. TRUMAN PERALTA MD AB/modl /[id number] CC: MD Shelby Ramírez APRN D: [id number] T: [id number] HISTORY & PHYSICAL
--- NOTE | ~2017-05-17 | PUL ---
PAT[facility]: [facility] AGE: 61 Y [address] ROOM: [id number] [place], [place] [address] LOCATION: [facility] ADMIT DATE: 05/17/2017 Pulmonary DISCHARGE DATE: FAMILY PHYSICIAN: Shelby Garcia APRN ATTENDING PHYSICIAN: Deedee Wade NAME OF PROCEDURE: Pulmonary Function Test DATE OF PROCEDURE: May 30, 2017 TECH: OFELIA Oseguera REASON FOR EXAM: Exertional dyspnea PROCEDURES PREFORMED: Spirometry with bronchodilator assessment. Measurement of maximum voluntary ventilation. Measurement of lung volumes. Measurement of diffusion capacity. RESULTS: Spirometry shows FVC was 3 liters, 79% of predicted. FEV1 was 2.35 liters, 81% of predicted. FEV1/FVC ratio was 78, 101% of predicted. AHA34-35% was 2.16 liters/second, 86% of predicted. Maximum voluntary ventilation was 78 liters/minute, 86% of predicted. This data did not change significantly following inhaled bronchodilator. Post bronchodilator FVC was 2.99 liters, 79% of predicted. FEV1 was 2.51 liters, 87% of predicted. FEV1/FVC ratio was 84, 108% of predicted. DZF38-09% was 3.07 liters/second, 122% of predicted. Maximum voluntary ventilation was 84 liters/minute, 93% of predicted. Lung volume measurements showed total lung capacity was 4.57 liters, 80% of predicted. Functional residual capacity was 2.69 liters, 77% of predicted. Residual volume was 1.58 liters, 72% of predicted. Diffusing capacity not adjusted for hemoglobin was 88% of predicted. The single breath alveolar volume was 3.94 liters and is a fair estimate of the total lung capacity. PHYSICIAN INTERPRETATION: The flow volume loop pattern is normal. This data and corresponding flow volume was compatible with normal pulmonary function, normal lung volumes, and normal gas transfer. MD MARCO RAMOS/amando PATIENT'S [facility]: [facility] AGE: 61 Y [address] ROOM: [id number], [place] [address] LOCATION: [facility] ADMIT DATE: 05/17/2017 Pulmonary DISCHARGE DATE: FAMILY PHYSICIAN: Shelby Garcia APRN ATTENDING PHYSICIAN: Deedee Wade /[id number] dtt: 06/06/17 1634 , ANAHI TREJO dtd: 06/04/17 1422
--- NOTE | ~2017-05-17 | DS ---
PATIENT'S NAME: GUANACO HUSSEIN [facility] AGE: 61 Y [address] ROOM: [id number] [place], [place] [address] LOCATION: GICU ADMIT DATE: 05/17/2017 Discharge Summary DISCHARGE DATE: 06/05/2017 FAMILY PHYSICIAN: Shelby Garcia APRN ATTENDING PHYSICIAN: Deedee Wade [facility] COURSE: This 61-year-old lady was admitted through the Emergency Room primarily with a six-week history of having problems with her balance, and also her speech was deliberate. It got worse, and she was consequently admitted through the Emergency Room. By this time, she was also complaining of headaches. At the time of admission, she was noted to have a left hemiparesis including facial paresis. She had investigations carried out including an MRI of the brain. The MRI of the brain showed a large right cystic lesion in the frontal area with quite significant midline shift from right to left along with surrounding edema. She was started on Decadron and felt better. Her speech improved, but she still had persistent left hemiparesis, which also had improved with the Decadron. She went on to have a right frontal craniotomy and excision of what technically we thought was a gross total excision of the tumor using Stealth Neuronavigational System, and postoperatively she did quite well. There was no complication with motor function on the left side. Her strength which had literally come back with the steroid injection remained normal. She was able to ambulate with help. However, about the fourth day postop, she started having increasing weakness and drowsiness, and at this time what had happened was we had discontinued the Decadron. She was started on the Decadron. With the Decadron, she improved dramatically, and on the sixth day, within 24 or 48 hours of being on the Decadron her strength had increased significantly on the left side, and her left facial palsy had gotten better. Her speech had also gotten better. By three days after these episodes had occurred, she was almost literally back to normal. She was seen in consultation by Dr. Wilson, who felt that she would be a good candidate for rehab. In addition, postop, she was seen by physical therapy and was able to ambulate, and by the time she was discharged, she was ambulating independently. Her speech was normal. Her face was normal. The left hemiparesis had completely subsided. A postop MRI that was done did show some thickened irregular enhancement along the posterior medial resection cavity, which was felt to be worrisome for residual tumor. However, my own thoughts were that if we compare this with the preop, these areas were not present preoperatively, and a good part of this could just be enhancement of the wall of the tumor cavity. This could only be seen in the axial views at 14, 15, 16, and 17 at best, however, a large part of the lesion had been removed. This area was only in the posterior and medial aspect of the resection site. The pathology report turned out to be glioblastoma, which was a wildtype and it was methylation negative, that is, MGMT promoter methylation was absent. She was seen also in consultation by Dr. Gutierrez, who was the PATIENT'S NAME: GUANACO HUSSEIN [facility] AGE: 61 Y [address] ROOM: [place] [address] LOCATION: [facility] ADMIT DATE: 05/17/2017 Discharge Summary DISCHARGE DATE: 06/05/2017 FAMILY PHYSICIAN: Shelby Garcia APRN ATTENDING PHYSICIAN: Deedee Wade oncologist as well as Dr. Westbrook, who is the Radiation oncologist. Dr. Gutierrez is the Medical oncologist. While she was in the hospital, she was seen by Dr. Fulton of the [facility] in the hospital, and we had to stop her Xarelto, which she was on for atrial fibrillation prior to the surgery. We started this back 48 hours from the time of the surgery, and there was no untoward effect from this. Before she was transferred to Rehab, she had cardioversion by her lead nitrate processor, Dr. Jerry Ferrell, and she was converted to sinus rhythm. She was eventually transferred to the Rehab Unit, and her radiation and chemotherapy were to be started a week or so from the time of discharge. FINAL DIAGNOSIS: Right frontal glioblastoma. ADDENDUM: Prior to her discharge from the hospital, we had reduced her Decadron initially to 2 mg four times daily, which she tolerated quite well, and before discharge, we had gone down further to 2 mg b.i.d., which she also tolerated quite well. The plan will be to continue her on the 2 mg b.i.d. while she has radiation, and this will be weaned off after she completed radiation. MD BRITTANY RODAS/asya /[id number] d: 06/07/17 2218 t: 07/09/17 1326, DISCHARGE SUMMARY
--- NOTE | ~2017-05-17 | ECHO ---
Transesophageal Echocardiography Report (SULY) Demographics Patient Name GUANACO HUSSEIN Date of Study 06/05/2017 Patient Number [id number] Visit Number [id number] Date of 1955 Room Number [id number] Gender Female Number Age 61 year(s) Referring Mauro Jimenez MD Financial Representative Zeke Leigh RVT Physician Radha Edwards Physician Interpreting Mariaelena Edwards Cylinder Block Hole Reliner Physician Supervising Ordering Mariaelena Edwards MD/MLP Physician Nurse Stress Box Office Attendant Conclusions Summary Transesophageal echocardiogram was done under general anesthesia without difficult probe placement . The left ventricle is normal in size . Normal LV systolic function with estimated LVEF 55-60% Normal right ventricular size and function. There is no LA or LA appendage thrombus or spontaneous contrast. Negative bubble study. Mild mitral regurgitation by color Doppler. The aortic valve is mildly sclerotic. Normal appearing tricuspid valve. Trivial tricuspid regurgitation by color Doppler. Procedure Type of Study SULY procedure Procedure Date Date: 06/05/2017 Start: 09:15 AM Study Location: Inpatient Portable Technical Quality: Adequate visualization Indications:Atrial fibrillation. Appropriate Use Criteria: 9 Patient Status: Routine HR: 68 bpm BP: 107/NaN mmHg Findings Left Ventricle The left ventricle is normal in size . Right Ventricle Normal right ventricular size and function. Left Atrium There is no LA or LA appendage thrombus or spontaneous contrast. Right Atrium Negative bubble study. Mitral Valve Mild mitral regurgitation by color Doppler. Aortic Valve The aortic valve is mildly sclerotic. Tricuspid Valve Normal appearing tricuspid valve. Trivial tricuspid regurgitation by color Doppler. Pulmonic Valve The pulmonic valve is not well visualized. Signature dtt: DENA DECKER dtd: 06/05/17914 Physician Self Edit
--- NOTE | ~2017-05-17 | CON ---
PATIENT'S NAME: GUANACO HUSSEIN [facility] AGE: 61 Y [address] ROOM: [id number] [place], [place] [address] LOCATION: GICU ADMIT DATE: 05/17/2017 Consultation DISCHARGE DATE: FAMILY PHYSICIAN: Shelby Garcia APRN ATTENDING PHYSICIAN: Deedee Wade DATE OF CONSULTATION: 06/03/2017 REFERRING PHYSICIAN: SUNIL MARION MD CHIEF COMPLAINT: Guanaco Hussein is a 61-year-old woman with a glioblastoma multiforme. HISTORY OF THE PRESENT ILLNESS: The history of the present illness is from the patient who is a good historian; her , who was very helpful; and review of the current and old [facility] chart. Mrs. Hussein was in her normal state of health until early to mid March 2017. Although not without medical complaints, she had no practical limits. 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 She participated in strength training twice a week at the fitness center. She had no aerobic exercise.s She was intermittently "dizzy." In early to mid March 2017, her family noticed she had slurred speech. It seemed more difficult for the patient to focus on tasks. She had more difficulty completing the preparations for her son's wedding in [place], [place]. She developed an increasing tendency to fall. She has intermittently fallen since 2014 when she first developed true vertigo. These spells have been investigated by her primary clinicians, her cardiologists, and her neurologists. When the patient returned from [place], [place]; she was weak. Her slurred speech was more pronounced and noticeable. She stumbled more frequently. On 04/21/2017, the patient had to leave work because her speech was slurred. However, this episode resolved and she was able to return to work. She was a bit more ataxic. When she went to the fitness center, it became more difficult to perform her exercises. She "sat on the floor more." She had persistent palpitations. The patient was undergoing evaluation for these spells with her nurse practitioner, Shelby Garcia and her neurologist, Dr. Anish Mejia. The possibility these were vasovagal episodes was under consideration. PATIENT'S NAME: GUANACO HUSSEIN [facility] AGE: 61 Y [address] ROOM: [id number] [place], [place] [address] LOCATION: GICU ADMIT DATE: 05/17/2017 Consultation DISCHARGE DATE: FAMILY PHYSICIAN: Shelby Garcia APRN ATTENDING PHYSICIAN: Deedee Wade On 05/17/2017, the patient's symptoms became more pronounced. The outpatient MRI was canceled and she was instructed to present to the emergency room for evaluation of her progressive slurred speech, leg tremors, dizziness, dysarthria, and presyncope. She was so disabled a visit to the clinic was impractical. Therefore, she was guided to the [facility] Emergency Room. Dr. Stephanie Giles saw the patient in the emergency room. A urinalysis was unremarkable. The white count was 9900, hemoglobin 12.9, MCV 107, and platelets 271,000. The patient had 64% neutrophils and 25% lymphocytes. The INR was 1.1 and the PTT was 32. The CMS was entirely unremarkable. The TSH was normal at 2.970 uIU/mL. The magnesium was normal. A CAT scan of the head was compared to an earlier scan performed on 06/30/2015. This showed a new area of decreased CT attenuation measuring 3.5 cm centered in the right frontal lobe with adjacent low attenuation edema and extensive local mass effect with sulcal effacement, effacement of the frontal horn of the right lateral ventricle and midline shift toward the left. MRI imaging was recommended. An MRI was immediately obtained and confirmed the presence of a 6-cm heterogeneous, solid-cystic mass in the right frontal lobe. There was a thick enhancing irregular wall. The frontal horn was effaced by the mass and there was left midline shift measuring up to 1.8 cm with surrounding edema. There was edema within the anterior corpus callosum. There was a small intralesional hemorrhage. The patient was placed on levetiracetam and dexamethasone. Dr. Villanueva and Dr. Wade consulted on her case. They agreed with the radiologist that a primary UNIT CONTROLLER malignancy was most likely and recommended surgical excision. On 05/22/2017, Dr. Wade took the patient to the surgical suite and performed a right frontal craniotomy and microsurgical gross total excision of tumor using the microscope, ultrasound and stealth neuronavigational system and application of the Caal head clamp. The pathologist consulted with their colleagues at the [facility] and concluded the patient had an IDH-wild type, WHO grade IV, glioblastoma multiforme. An MRI performed following the surgery on 05/22/2017, revealed interval resection of the large right frontal tumor. There was some persistent irregular enhancement along the posterior and medial resection cavity worrisome for residual tumor with a decrease in the amount of white matter edema within the right frontal lobe, although there was persistent mass effect with effacement of the frontal horns of the lateral ventricles and midline shift to the left. The patient is seen in Medical Oncology consultation today and Radiation Oncology consultation has been requested. The patient is also seen by her PATIENT'S NAME: GUANACO HUSSEIN [facility] AGE: 61 Y [address] ROOM: [id number] [place], [place] [address] LOCATION: [facility] ADMIT DATE: 05/17/2017 Consultation DISCHARGE DATE: FAMILY PHYSICIAN: Shelby Garcia APRN ATTENDING PHYSICIAN: Deedee Wade consulting respite worker. The patient has no past history of cancer. She has no family history of glioblastoma multiforme or other central nervous system tumors. She does have a paternal aunt and 2 cousins who developed a gynecologic cancer that may have been ovarian cancer. The patient has tolerated this surgery reasonably well. The surgery has been complicated with diplopia and Dr. Caitie Orellana has been consulted. The patient is not using a cane or a walker. She is using a gait belt with standby assist. Her balance is no better or worse than it was prior to surgery. She has been able to walk "12 laps." She has not swooned. In retrospect, she had a right- sided headache which is better. In retrospect, she had tremors which are better. She may have left leg weakness, but certainly no hemiplegia, and the hemiparesis is mild. PAST MEDICAL HISTORY: Active medical problems, chronic and undiagnosed: 1. Migraine headaches treated with rizatriptan. These occur about every 2 weeks. They are classic migraines with an aura. Initially, her migraines were ocular alone. She vomits and experiences photophobia. She takes promethazine and Fioricet. In the past, she used nonsteroidals. 2. Tonic-clonic seizure disorder. First noted in 2000. The patient was placed on valproic acid and has been on that for 13 years because she had a second seizure 3 years later. 3. Osteopenia, noted age 39 and treated with bisphosphonates. 4. ?Mitral valve prolapse leading to regurgitation? This has been diagnosed in the past, but a more recent echocardiogram on 05/24/2017 did not refer to this. There was mild mitral regurgitation and moderate tricuspid regurgitation on an echocardiogram on 06/30/2015. 5. Osteoarthritis in the left knee. 6. Early cataracts. 7. Lumbar scoliosis due to osteoarthritis. 8. Raynaud phenomena, first noted in 1989. 9. Chronic venous insufficiency. 10. PSVT, treated with beta blockers. 11. Sigmoid diverticulosis, noted in 2007. 12. Depression/anxiety. Controlled with venlafaxine. 13. Paroxysmal atrial fibrillation. In 2001, a Holter monitor showed runs of atrial fibrillation. In 2013, this was noted preoperatively and the patient underwent cardioversion on 08/30/2014 and 09/29/2014. 14. ? Constipation predominant, irritable bowel syndrome ? 15. Right simple kidney cysts, noted in 2007. 16. Atherosclerotic vascular disease with aortic calcifications on CAT scan of the abdomen, noted in 2007. PATIENT'S NAME: GUANACO HUSSEIN [facility] AGE: 61 Y [address] ROOM: [id number] [place], [place] [address] LOCATION: [facility] ADMIT DATE: 05/17/2017 Consultation DISCHARGE DATE: FAMILY PHYSICIAN: Shelby Garcia APRN ATTENDING PHYSICIAN: Deedee Wade 17. Perennial rhinitis, treated with fluticasone and cetirizine. 18. ? Essential arterial hypertension. The patient has had 1 hypertensive episode and was placed on beta-blockers or another antihypertensive for this 2 years ago. She questioned this approach. PAST SURGICAL HISTORY: Acute medical illnesses (resolved), past surgeries, and injuries: 1. [id number]: G5, P2, AB 3. 2. 1989, right breast biopsy. 3. 2007, left inguinal hernia. 4. 2011, soft-tissue arthroplasty for metacarpal arthritis of the right first digit. 5. 2016, (05/22), right frontal craniotomy and microsurgical gross total excision of tumor; using microscope, ultrasound, stealth neuronavigation, and application of Caal head clamp for glioblastoma multiforme. MEDICATIONS UPON HOSPITALIZATION: 1. Calcium with D. 2. Codeine/butalbital. 3. Divalproex 1250 mg p.o. at bedtime. 4. Estradiol/levonorgestrel one patch topically weekly. 5. Famotidine. 6. Flecainide 100 mg p.o. b.i.d. 7. Metoprolol 12.5 mg p.o. every 24 hours. 8. Multivitamins daily. 9. Promethazine 25 mg daily. 10. Rivaroxaban 20 mg daily. 11. Rizatriptan 10 mg p.o. at bedtime. 12. Temazepam 30 mg p.o. at bedtime. 13. Venlafaxine 75 mg p.o. every 24 hours. ALLERGIES: ADVERSE REACTIONS TO MEDICATIONS, TRANSFUSIONS, AND ALLERGIES. 1. TOPIRAMATE LED TO A PRURITIC RASH. 2. SHE HAS NEVER HAD TRANSFUSIONS. SOCIAL HISTORY: Tobacco: None. Alcohol: 3 ounces a week for many years. She is a teetotaler. Caffeine: A cup per week. IMMUNIZATIONS: Positive flu. Negative Pneumovax. Positive tetanus. Positive varicella zoster virus vaccine. FAMILY HISTORY: PATIENT'S NAME: GUANACO HUSSEIN [facility] AGE: 61 Y [address] ROOM: [id number] [place], [place] [address] LOCATION: [facility] ADMIT DATE: 05/17/2017 Consultation DISCHARGE DATE: FAMILY PHYSICIAN: Shelby Garcia APRN ATTENDING PHYSICIAN: Deedee Wade The patient's father had prostate cancer at age 70, and was cured. The patient's maternal grandfather had skin cancers. None of them were melanomas. She has a paternal aunt who of a gynecologic cancer in her 70s, and in that paternal aunt had 2 daughters who developed a gynecologic malignancy in their 40s. The patient does not know if this was ovarian cancer or cervical cancer. The patient had a maternal aunt who of melanoma at age 80. SOCIAL HISTORY: The patient was born in [place], [place]. She graduated a [employer]. 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 She did a residency in [place]. Her is employed as a barrister. They have a son in [place], [place], and a daughter in [place], [place]. REVIEW OF SYSTEMS: The patient may have coughed somewhat more than normal recently. PHYSICAL EXAMINATION: VITAL SIGNS: Pulse 64 and regular, blood pressure 110/60, respiratory rate 12, and temperature 97.9. Height 68 inches. Weight 60.7 kg (134 pounds). BMI 20.3 kg/m2. GENERAL: A well-developed, wiry, 61-year-old, female, in no acute distress. HEENT: Right craniotomy scar. LYMPH NODES: None palpable. NECK: Without JVD or carotid bruits. SKIN: Alaniz angiomas. CHEST: Clear. CV: Regular rhythm. No murmurs, bruits, or adventitious sounds. BREASTS: Not examined. ABDOMEN: No masses, tenderness, or megaly. GENITALIA AND RECTAL: Not examined. EXTREMITIES: Compression devices are present on the calves. Socks are present. Pulses are 2+ in the upper extremities. NEUROLOGIC: Cranial nerves 2 through 12 intact. Strength: 5/5 on the right side and 4/5 on the left side. Deep tendon reflexes not elicited. Babinski not tested. The patient is oriented and appropriate. IMPRESSION: 1. WHO grade IV/IV IDH-wild type, MGMT methylation promoter status pending, glioblastoma multiforme of the right frontal lobe of the brain. 2. Risk factors include age 61 and race. 3. Although cures and 5-year survivors are noted, this will probably be a chronic lifelong disease. 4. Treatment goals are likely palliative though we would certainly hope for a cure. We expect to relieve some of her symptoms, prevent complications, PATIENT'S NAME: GUANACO HUSSEIN [facility] AGE: 61 Y [address] ROOM: [id number] [place], [place] [address] LOCATION: [facility] ADMIT DATE: 05/17/2017 Consultation DISCHARGE DATE: FAMILY PHYSICIAN: Shelby Garcia APRN ATTENDING PHYSICIAN: Deedee Wade prolong her normal life after restoring it, and expect to minimize the side effects, expense, and inconvenience of therapy. 5. A standard approach would be debulking surgery which has already been performed followed by adjuvant external beam radiation therapy for 6 weeks concurrent with oral temozolomide, followed by adjuvant oral temozolomide daily for 5 days every 4 weeks for 6-12 months in combination with alternating electronic cary. A clinical trial would also be a standard approach. We will visit about the expected outcomes with best supportive care, but that would generally not be employed in a healthy 61-year-old woman whose Karnofsky performance status is 70. . 6. A Genetics consultation is worth thinking about. Glioblastoma multiforme can have hereditary basis, but in her circumstance the strong history of gynecologic cancer in her aunt and first cousins is probably the prime indication. 7. 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 RECOMMENDATIONS: DIAGNOSTIC: 1. MGMT methylation promoter status. 2. Complete Radiation Oncology consultation as planned. 3. Genetics consultation. TREATMENT: 1. Depends on whether the patient chooses to pursue standard therapy or a clinical trial. 2. Continue other medications. Whether levetiracetam needs to be substituted for divalproex is a consideration. PATIENT EDUCATION: Made the point we would review her slides and films and be back for a family conference. MD ILIANA GARCIA/asya /[id number] CC: KB Zapien MD Diana M Lind, DO PATIENT'S NAME: GUANACO HUSSEIN [facility] AGE: 61 Y [address] [id number] [address] LOCATION: [facility] ADMIT DATE: 05/17/2017 Consultation DISCHARGE DATE: FAMILY PHYSICIAN: Shelby Garcia APRN ATTENDING PHYSICIAN: Deedee Wade MD Lakshminarayan Yerra, MD d: 06/04/17 1436 t: 06/06/17 1056, CONSULTATION REPORT
--- NOTE | ~2017-05-17 | OR ---
PATIENT'S NAME: GUANACO HUSSEIN [facility] AGE: 61 Y [address] ROOM: [address] [address] LOCATION: GICU ADMIT DATE: 05/17/2017 OR/Procedure Report DISCHARGE DATE: 06/05/2017 FAMILY PHYSICIAN: Shelby Garcia APRN ATTENDING PHYSICIAN: Deedee Wade SURGEON: Jerry Decker MD JUNIOR BOOKKEEPER: DATE OF PROCEDURE: 06/05/2017 INDICATION: Atrial fibrillation with variable ventricular rate control. PROCEDURE: Cardioversion. DESCRIPTION OF PROCEDURE: The procedure was described to the patient and informed consent was obtained. A SULY was performed to look for left atrial appendage thrombus. The SULY findings are reported separately. The SULY did not show any obvious left atrial appendage thrombus. Anesthesia was provided by the team of anesthetists. The patient was then cardioverted using 100 joules of DC cardioversion. Her rhythm prior to cardioversion was atrial fibrillation with ventricular rate of 70 to 80 beats per minute. Post cardioversion, her rhythm was sinus rhythm with occasional PACs with ventricular rate of 66 beats per minute, blood pressure was 116/69 post cardioversion. Prior to cardioversion her blood pressure was 89/58 mmHg. The patient tolerated the procedure well. No complications. JERRY DECKER MD LY/modl /[id number] d: 06/05/17 1028 t: 06/20/17 1027, OPERATIVE SUMMARY
[~2017-05-17 10:24] MED LIST changes: -CLIMARA PRO PA1 EACH TOP; -COLACE100 MG PO; -CORDARONE,PACE200 MG PO; -DECADRON1 MG PO; -EFFEXOR XR75 MG PO; -FIORICET PO; -FIORINAL WITH1 EACH PO; -KEPPRA500 MG PO; -LOPRESSOR25 MG PO; -MAXALT MLT10 MG PO; -OSCAL + D500 MG PO; -PHENERGAN25 M1 PO; -RESTORIL30 MG PO; -THERA-VITE W/ B1 TAB PO; -VIVISCAL PO
[2017-05-17 11:14] LABS: BASOPHIL % 0.2 %; EOSINOPHIL # 0.1 K/uL (0.0-0.5); HEMATOCRIT 38.3 % (33.0-46.0); HEMOGLOBIN 12.9 g/dL (10.0-15.0); IMMATURE GRANULOCYTE % 0.3 %; LYMPHOCYTE # 2.5 K/uL (0.8-4.0); LYMPHOCYTE % 25.1 %; MCH 36.1 pg (27.0-34.0); MCHC 33.7 gm/dL (32.0-36.5); MCV 107.3 fl (83.0-98.0); MONOCYTE # 0.9 K/uL (0.0-1.0); MONOCYTE % 9.2 %; MPV 10.3 fl (9.4-12.4); NEUTROPHIL # (ANC) 6.4 K/uL (1.8-7.8); NEUTROPHIL % 64.2 %; NRBC % 0 /100WBC (0-0.00); PLATELET COUNT 271 K/uL (150-450); RBC 3.57 M/uL (3.50-5.50); RDW-CV 11.9 % (11.9-14.6); WBC 9.9 K/uL (4.0-11.0)
[2017-05-17 11:21] LABS: INR - (THERAPEUTIC) 1.08 (0.92-1.07); PROTIME 11.4 SECONDS (9.8-11.4); PTT 32 SECONDS (25-32)
[2017-05-17 11:30] LABS: ALBUMIN 3.7 gm/dL (3.5-5.0); ALK PHOS 48 IU/L (33-138); ALT 26 IU/L (12-78); AST 16 IU/L (10-40); BLOOD UREA NITROGEN 17 mg/dL (6-24); CALCIUM 8.8 mg/dL (8.5-10.5); CHLORIDE 96 mMol/L (96-110); CO2 32 mMol/L (22-32); CPK 225 IU/L (21-215); MAGNESIUM 2.4 mg/dL (1.8-2.6); SODIUM 136 mMol/L (135-145); TOTAL BILIRUBIN 0.5 mg/dL (0.0-1.5); TOTAL PROTEIN 7.4 g/dL (6.0-8.4)
[2017-05-17 14:19] LABS: BILIRUBIN URINE NEGATIVE (NEGATIVE); BLOOD URINE NEGATIVE /UL (NEGATIVE); COLOR URINE YELLOW (YELLOW); GLUCOSE URINE NEGATIVE (NEGATIVE); KETONE URINE NEGATIVE (NEGATIVE); LEUKOCYTES URINE NEGATIVE /UL (NEGATIVE); NITRITE URINE NEGATIVE (NEGATIVE); PROTEIN URINE NEGATIVE (NEGATIVE); TURBIDITY URINE CLEAR (CLEAR); UROBILINOGEN URINE NORMAL (NORMAL)
[2017-05-17] MEDS ORDERED: EFFEXOR XR75 MG PO (16:21)
[2017-05-17] MEDS ORDERED: MAXALT MLT10 MG PO (16:23)
[2017-05-17] MEDS ORDERED: PHENERGAN25 M1 PO (16:23)
[2017-05-17] MEDS ORDERED: THERA-VITE W/ B1 TAB PO (16:25)
[2017-05-17] MEDS ORDERED: FIORINAL WITH1 EACH PO (16:25)
[2017-05-17] MEDS ORDERED: OSCAL + D500 MG PO (16:26)
[2017-05-17] MEDS ORDERED: RESTORIL30 MG PO (16:30)
[2017-05-17] MEDS ORDERED: CLIMARA PRO PA1 EACH TOP (16:46)
[2017-05-19 13:01] LABS: BASOPHIL % 0.1 %; HEMATOCRIT 36.7 % (33.0-46.0); HEMOGLOBIN 12.6 g/dL (10.0-15.0); IMMATURE GRANULOCYTE # 0.1 K/uL (0.0-0.3); IMMATURE GRANULOCYTE % 0.5 %; LYMPHOCYTE # 1.3 K/uL (0.8-4.0); LYMPHOCYTE % 10.2 %; MCH 36.4 pg (27.0-34.0); MCHC 34.3 gm/dL (32.0-36.5); MCV 106.1 fl (83.0-98.0); MONOCYTE # 0.9 K/uL (0.0-1.0); MONOCYTE % 7.2 %; MPV 10.8 fl (9.4-12.4); NEUTROPHIL # (ANC) 10.3 K/uL (1.8-7.8); NRBC % 0 /100WBC (0-0.00); PLATELET COUNT 260 K/uL (150-450); RBC 3.46 M/uL (3.50-5.50); RDW-CV 12.6 % (11.9-14.6); WBC 12.5 K/uL (4.0-11.0)
[2017-05-19 13:18] LABS: ALBUMIN 3.3 gm/dL (3.5-5.0); ANION GAP 12.9 (10.0-19.0); CALCIUM 8.6 mg/dL (8.5-10.5); CREATININE 0.8 mg/dL (0.5-1.1); POTASSIUM 3.9 mMol/L (3.7-5.1); TOTAL PROTEIN 7.1 g/dL (6.0-8.4)
[2017-05-19 13:23] LABS: TOTAL BILIRUBIN 0.2 mg/dL (0.0-1.5)
[2017-05-20 05:03] LABS: BASOPHIL % 0.1 %; HEMATOCRIT 39.4 % (33.0-46.0); HEMOGLOBIN 13.4 g/dL (10.0-15.0); IMMATURE GRANULOCYTE # 0.1 K/uL (0.0-0.3); IMMATURE GRANULOCYTE % 0.4 %; LYMPHOCYTE # 1.4 K/uL (0.8-4.0); LYMPHOCYTE % 11.9 %; MCV 105.9 fl (83.0-98.0); MONOCYTE # 0.8 K/uL (0.0-1.0); MONOCYTE % 6.7 %; MPV 10.8 fl (9.4-12.4); NEUTROPHIL # (ANC) 9.4 K/uL (1.8-7.8); NEUTROPHIL % 80.9 %; NRBC % 0 /100WBC (0-0.00); PLATELET COUNT 265 K/uL (150-450); RBC 3.72 M/uL (3.50-5.50); RDW-CV 12.6 % (11.9-14.6); WBC 11.6 K/uL (4.0-11.0)
[2017-05-20 05:21] LABS: ALBUMIN 3.2 gm/dL (3.5-5.0); ANION GAP 10.9 (10.0-19.0); CALCIUM 8.6 mg/dL (8.5-10.5); CREATININE 0.8 mg/dL (0.5-1.1); POTASSIUM 3.9 mMol/L (3.7-5.1); TOTAL BILIRUBIN 0.2 mg/dL (0.0-1.5); TOTAL PROTEIN 7.4 g/dL (6.0-8.4)
[2017-05-21 05:36] LABS: BASOPHIL % 0.1 %; HEMATOCRIT 43.5 % (33.0-46.0); HEMOGLOBIN 14.9 g/dL (10.0-15.0); IMMATURE GRANULOCYTE # 0.1 K/uL (0.0-0.3); IMMATURE GRANULOCYTE % 0.7 %; LYMPHOCYTE # 1.6 K/uL (0.8-4.0); LYMPHOCYTE % 11.6 %; MCH 35.9 pg (27.0-34.0); MCHC 34.3 gm/dL (32.0-36.5); MCV 104.8 fl (83.0-98.0); MONOCYTE # 0.7 K/uL (0.0-1.0); MPV 10.9 fl (9.4-12.4); NEUTROPHIL % 82.6 %; NRBC % 0 /100WBC (0-0.00); PLATELET COUNT 278 K/uL (150-450); RBC 4.15 M/uL (3.50-5.50); RDW-CV 12.2 % (11.9-14.6); WBC 13.4 K/uL (4.0-11.0)
[2017-05-21 05:54] LABS: ALBUMIN 3.1 gm/dL (3.5-5.0); ANION GAP 12.3 (10.0-19.0); CALCIUM 9.1 mg/dL (8.5-10.5); CREATININE 0.8 mg/dL (0.5-1.1); POTASSIUM 4.3 mMol/L (3.7-5.1); TOTAL BILIRUBIN 0.2 mg/dL (0.0-1.5); TOTAL PROTEIN 7.2 g/dL (6.0-8.4)
[2017-05-22 05:31] LABS: BASOPHIL % 0.1 %; HEMATOCRIT 46.1 % (33.0-46.0); IMMATURE GRANULOCYTE # 0.1 K/uL (0.0-0.3); IMMATURE GRANULOCYTE % 0.6 %; LYMPHOCYTE % 11.7 %; MCH 36.3 pg (27.0-34.0); MCHC 34.7 gm/dL (32.0-36.5); MCV 104.5 fl (83.0-98.0); MONOCYTE # 1.7 K/uL (0.0-1.0); MONOCYTE % 10.1 %; MPV 10.8 fl (9.4-12.4); NEUTROPHIL # (ANC) 13.1 K/uL (1.8-7.8); NEUTROPHIL % 77.5 %; NRBC % 0 /100WBC (0-0.00); RBC 4.41 M/uL (3.50-5.50); RDW-CV 12.1 % (11.9-14.6)
[2017-05-22 05:36] LABS: PLATELET COUNT 334 K/uL (150-450)
[2017-05-22 05:54] LABS: ANION GAP 13.2 (10.0-19.0); CALCIUM 8.9 mg/dL (8.5-10.5); CREATININE 1.1 mg/dL (0.5-1.1); POTASSIUM 4.2 mMol/L (3.7-5.1); TOTAL BILIRUBIN 0.5 mg/dL (0.0-1.5); TOTAL PROTEIN 7.1 g/dL (6.0-8.4)
[2017-05-23 05:46] LABS: ALBUMIN 2.5 gm/dL (3.5-5.0); ANION GAP 10.3 (10.0-19.0); BLOOD UREA NITROGEN 17 mg/dL (6-24); CALCIUM 7.7 mg/dL (8.5-10.5); CHLORIDE 105 mMol/L (96-110); CO2 30 mMol/L (22-32); CREATININE 0.6 mg/dL (0.5-1.1); PHOSPHORUS 3.4 mg/dL (2.5-4.9); POTASSIUM 4.3 mMol/L (3.7-5.1); SODIUM 141 mMol/L (135-145)
[2017-05-23 05:52] LABS: HEMOGLOBIN 10.9 g/dL (10.0-15.0)
[2017-05-23 05:53] LABS: HEMATOCRIT 32.2 % (33.0-46.0)
[2017-05-24 05:19] LABS: BASOPHIL % 0.1 %; EOSINOPHIL # 0.2 K/uL (0.0-0.5); EOSINOPHIL % 1.1 %; HEMATOCRIT 33.4 % (33.0-46.0); HEMOGLOBIN 11.1 g/dL (10.0-15.0); IMMATURE GRANULOCYTE # 0.1 K/uL (0.0-0.3); IMMATURE GRANULOCYTE % 0.6 %; LYMPHOCYTE # 4.9 K/uL (0.8-4.0); LYMPHOCYTE % 31.4 %; MCHC 33.2 gm/dL (32.0-36.5); MCV 106.7 fl (83.0-98.0); MONOCYTE # 2.6 K/uL (0.0-1.0); MONOCYTE % 16.5 %; MPV 10.5 fl (9.4-12.4); NEUTROPHIL # (ANC) 7.9 K/uL (1.8-7.8); NEUTROPHIL % 50.3 %; NRBC % 0 /100WBC (0-0.00); RDW-CV 12.3 % (11.9-14.6); WBC 15.7 K/uL (4.0-11.0)
[2017-05-24 05:34] LABS: ALBUMIN 2.4 gm/dL (3.5-5.0); ALK PHOS 44 IU/L (33-138); ALT 67 IU/L (12-78); ANION GAP 8.8 (10.0-19.0); AST 41 IU/L (10-40); BLOOD UREA NITROGEN 13 mg/dL (6-24); CALCIUM 7.8 mg/dL (8.5-10.5); CHLORIDE 103 mMol/L (96-110); CO2 32 mMol/L (22-32); CREATININE 0.5 mg/dL (0.5-1.1); POTASSIUM 3.8 mMol/L (3.7-5.1); SODIUM 140 mMol/L (135-145); TOTAL BILIRUBIN 0.3 mg/dL (0.0-1.5); TOTAL PROTEIN 5.7 g/dL (6.0-8.4)
[2017-05-24 05:39] LABS: MCH 35.5 pg (27.0-34.0); PLATELET COUNT 220 K/uL (150-450); RBC 3.13 M/uL (3.50-5.50)
[2017-05-28 05:22] LABS: ANION GAP 10.1 (10.0-19.0); BLOOD UREA NITROGEN 18 mg/dL (6-24); CALCIUM 8.9 mg/dL (8.5-10.5); CHLORIDE 97 mMol/L (96-110); CO2 33 mMol/L (22-32); CREATININE 0.7 mg/dL (0.5-1.1); POTASSIUM 4.1 mMol/L (3.7-5.1); SODIUM 136 mMol/L (135-145)
[2017-05-30 05:38] LABS: BASOPHIL % 0.1 %; HEMATOCRIT 31.2 % (33.0-46.0); HEMOGLOBIN 10.6 g/dL (10.0-15.0); IMMATURE GRANULOCYTE # 0.1 K/uL (0.0-0.3); IMMATURE GRANULOCYTE % 0.5 %; LYMPHOCYTE # 1.1 K/uL (0.8-4.0); LYMPHOCYTE % 8.8 %; MCH 36.4 pg (27.0-34.0); MCV 107.2 fl (83.0-98.0); MONOCYTE # 0.5 K/uL (0.0-1.0); MONOCYTE % 4.1 %; MPV 9.8 fl (9.4-12.4); NEUTROPHIL # (ANC) 10.6 K/uL (1.8-7.8); NEUTROPHIL % 86.5 %; NRBC % 0 /100WBC (0-0.00); RBC 2.91 M/uL (3.50-5.50); RDW-CV 12.6 % (11.9-14.6); WBC 12.2 K/uL (4.0-11.0)
[2017-05-30 05:40] LABS: PLATELET COUNT 346 K/uL (150-450)
[2017-05-30 05:59] LABS: ALBUMIN 2.6 gm/dL (3.5-5.0); ALK PHOS 83 IU/L (33-138); ALT 61 IU/L (12-78); ANION GAP 10.5 (10.0-19.0); AST 24 IU/L (10-40); BLOOD UREA NITROGEN 19 mg/dL (6-24); CALCIUM 8.8 mg/dL (8.5-10.5); CHLORIDE 100 mMol/L (96-110); CO2 33 mMol/L (22-32); CREATININE 0.7 mg/dL (0.5-1.1); POTASSIUM 4.5 mMol/L (3.7-5.1); SODIUM 139 mMol/L (135-145); TOTAL PROTEIN 6.5 g/dL (6.0-8.4)
[2017-05-30 06:03] LABS: TOTAL BILIRUBIN 0.4 mg/dL (0.0-1.5)
[2017-05-31 05:16] LABS: BASOPHIL % 0.1 %; HEMATOCRIT 30.5 % (33.0-46.0); HEMOGLOBIN 10.3 g/dL (10.0-15.0); IMMATURE GRANULOCYTE # 0.2 K/uL (0.0-0.3); IMMATURE GRANULOCYTE % 0.9 %; LYMPHOCYTE # 1.3 K/uL (0.8-4.0); LYMPHOCYTE % 8.3 %; MCH 36.3 pg (27.0-34.0); MCHC 33.8 gm/dL (32.0-36.5); MCV 107.4 fl (83.0-98.0); MONOCYTE # 0.9 K/uL (0.0-1.0); MONOCYTE % 5.3 %; MPV 9.6 fl (9.4-12.4); NEUTROPHIL # (ANC) 13.8 K/uL (1.8-7.8); NEUTROPHIL % 85.4 %; NRBC % 0 /100WBC (0-0.00); PLATELET COUNT 406 K/uL (150-450); RBC 2.84 M/uL (3.50-5.50); RDW-CV 12.8 % (11.9-14.6)
[2017-05-31 05:19] LABS: WBC 16.1 K/uL (4.0-11.0)
[2017-05-31 05:38] LABS: ANION GAP 10.5 (10.0-19.0); BLOOD UREA NITROGEN 26 mg/dL (6-24); CALCIUM 8.6 mg/dL (8.5-10.5); CHLORIDE 97 mMol/L (96-110); CO2 33 mMol/L (22-32); CREATININE 0.7 mg/dL (0.5-1.1); POTASSIUM 4.5 mMol/L (3.7-5.1); SODIUM 136 mMol/L (135-145)
[2017-06-01 05:54] LABS: BASOPHIL % 0.1 %; HEMATOCRIT 28.8 % (33.0-46.0); HEMOGLOBIN 9.8 g/dL (10.0-15.0); IMMATURE GRANULOCYTE # 0.2 K/uL (0.0-0.3); IMMATURE GRANULOCYTE % 1.1 %; LYMPHOCYTE # 1.3 K/uL (0.8-4.0); LYMPHOCYTE % 9.7 %; MCH 36.7 pg (27.0-34.0); MCV 107.9 fl (83.0-98.0); MONOCYTE # 0.6 K/uL (0.0-1.0); MONOCYTE % 4.6 %; MPV 9.6 fl (9.4-12.4); NEUTROPHIL # (ANC) 11.6 K/uL (1.8-7.8); NEUTROPHIL % 84.5 %; NRBC % 0 /100WBC (0-0.00); PLATELET COUNT 401 K/uL (150-450); RBC 2.67 M/uL (3.50-5.50); RDW-CV 12.9 % (11.9-14.6); WBC 13.8 K/uL (4.0-11.0)
[2017-06-04 05:50] LABS: BASOPHIL % 0.1 %; HEMATOCRIT 32.1 % (33.0-46.0); HEMOGLOBIN 10.7 g/dL (10.0-15.0); IMMATURE GRANULOCYTE # 0.2 K/uL (0.0-0.3); IMMATURE GRANULOCYTE % 1.2 %; LYMPHOCYTE # 1.6 K/uL (0.8-4.0); LYMPHOCYTE % 10.8 %; MCH 35.8 pg (27.0-34.0); MCHC 33.3 gm/dL (32.0-36.5); MCV 107.4 fl (83.0-98.0); MONOCYTE # 0.7 K/uL (0.0-1.0); MONOCYTE % 5.1 %; MPV 9.4 fl (9.4-12.4); NEUTROPHIL # (ANC) 12.1 K/uL (1.8-7.8); NEUTROPHIL % 82.8 %; NRBC % 0 /100WBC (0-0.00); PLATELET COUNT 458 K/uL (150-450); RBC 2.99 M/uL (3.50-5.50); RDW-CV 12.9 % (11.9-14.6); WBC 14.6 K/uL (4.0-11.0)
[2017-06-05] MEDS ORDERED: FIORICET PO (17:31)
[2017-06-05] MEDS ORDERED: VIVISCAL PO (17:34)
== END 2017-06-05 14:45 | DRG 25 ==
LOC: GMED 10:24 → GICU 14:02
PROVIDERS: Family Medicine; Internal Medicine Interventional Cardiology; Neurological Surgery; Nurse Practitioner Family; ADMIT Neurological Surgery
PROC: 00B70ZX Excision of Cerebral Hemisphere, Open Approach, Diagnostic (ICD-10-PCS; principal; 2017-05-22)
PROC: 8E09XBZ Computer Assisted Procedure of Head and Neck Region (ICD-10-PCS; principal; 2017-05-22)
PROC: B246ZZZ Ultrasonography of Right and Left Heart (ICD-10-PCS; 2017-05-24)
PROC: 5A2204Z Restoration of Cardiac Rhythm, Single (ICD-10-PCS; 2017-06-05)
PROC: B246ZZ4 Ultrasonography of Right and Left Heart, Transesophageal (ICD-10-PCS; 2017-06-05)
DX: C71.1 Malignant neoplasm of frontal lobe (principal); G93.6 Cerebral edema; I48.0 Paroxysmal atrial fibrillation; E44.1 Mild protein-calorie malnutrition; G40.909 Epilepsy, unspecified, not intractable, without status epilepticus; D64.9 Anemia, unspecified; D72.829 Elevated white blood cell count, unspecified; Z91.81 History of falling; Z79.01 Long term (current) use of anticoagulants; H53.8 Other visual disturbances; I95.81 Postprocedural hypotension; G47.00 Insomnia, unspecified; Z68.20 Body mass index [BMI] 20.0-20.9, adult
CPT/HCPCS: A9577; C1713; C1763; J0131; J0282; J0690; J1100; J1160; J1953; J2001; J2250; J2270; J2370; J2405; J2550; J3010; J7030; J7040; J7050; J7060; Q9967

== ENCOUNTER 2017-06-05 14:45 | Inpatient (IN) | payer OTHER ==
[~2017-06-05] VITALS: Ht 172.7 cm; Wt 61.5 kg
--- NOTE | ~2017-06-05 | CON ---
PATIENT'S NAME: GUANACO HUSSEIN [facility] AGE: 61 Y [address] ROOM: G3433 [place], [place] [address] LOCATION: GIRP ADMIT DATE: 06/05/2017 Consultation DISCHARGE DATE: 06/12/2017 FAMILY PHYSICIAN: Shelby Garcia APRN ATTENDING PHYSICIAN: Noé Rios DATE OF CONSULTATION: 06/11/2017 REFERRING PHYSICIAN: Sho Sheikh MD TEAM MEMBERS REPORTING: Dr. Rios; Janie Marie, social sciences professor; inpatient rehab nursing staff; Tena Casanova, PT; Jannet Galvan, PT; Xi Bell, OT; Sana Medina, Speech Therapy; Evette Guerrero therapeutic rec; and sister Elayne Ford, [facility] Care. CURRENT STATUS: Guanaco is a 61-year-old woman, admitted to our inpatient rehab unit on June 05, 2017 with a new diagnosis of glioblastoma multiforme. The patient did have right frontal craniotomy with tumor excision. She also has a history of a seizure disorder, reflux gastric disease, atrial fibrillation, hypertension, and depression. The patient is on a regular diet. Takes Ensure Enlive every day at breakfast. She is independent for her transfers. She can walk 300 to 600 feet, standby assistance. She does have some path deviations. She can climb 12 stairs at modified independence. She has met 4/9 long-term PT goals. The patient can dress her upper body at standby; and lower body standby; grooming and bathing standby. Goals for OT have been set for mod I. Comprehension and language and expression, mod I. Memory and problem solving, mod I. The patient does still relate that her thinking is slower. She does have occasional loss of balance. Complain of dizziness not active in her hinduism. DISCHARGE PLAN: The patient is receiving 3 hours of PT, OT, and speech Saturday through Saturday. The patient has daily rehab, nursing, and physiatry involvement as well as therapeutic recreational services. The patient has shown functional improvement and is progressing. Please see her plan of care for specific goals. Plan is for the patient to discharge on June 12, 2017. The patient plans to go home with her here in [place], [place]. She will have outpatient therapy services. JANIE MARIE FOR NOÉ RIOS MD PATIENT'S NAME: GUANACO HUSSEIN [facility] AGE: 61 Y [address] ROOM: [place] [address] LOCATION: [facility] ADMIT DATE: 06/05/2017 Consultation DISCHARGE DATE: 06/12/2017 FAMILY PHYSICIAN: Shelby Garcia APRN ATTENDING PHYSICIAN: Noé Rios TD/adelinal /[id number] d: 06/25/17 0017 t: 07/08/17 1127, CONSULTATION REPORT
--- NOTE | ~2017-06-05 | HP ---
PATIENT'S NAME: GUANACO HUSSEIN [facility] AGE: 61 Y [address] 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 1. Unstable gait. 2. Dependent activities of self-care. 3. Status post on 05/22/2017 craniotomy of right frontoparietal and gross excision of the tumor of glioma. Details on record with difficulty with speech and have left-sided slight weakness with decreased coordination at high-risk of falling with slurred speech and slight decreased attention also noticed to the left-side. 4. She is admitted for continuous medical treatment and intensive rehabilitation. I saw this lady on initial consult on 05/29/2017 and recommended intensive rehab for about 2 weeks or so depending on her progress aiming to discharge on modified independent; however, she had tachycardia and did undergo cardioversion and that did not happen right away; however, it is now as much as I understand she had undergone yesterday cardioversion and she is comfortable. Alert and oriented. Vitals on admission were as follows: Blood pressure 105/59, pulse is 68, regular, temperature 97.8, and respiratory rate 16. She is 5 feet, 8 inches tall and weighs 56.8 kg. ALLERGIES: NONE REPORTED. MEDICATIONS: She is on the following medications: 1. Benadryl as directed 12.5 mg. 2. Cordarone or Pacerone 200 mg p.o. twice daily. 3. Os-Sumanth D 500 mg 3 times daily p.o. 4. Depakote 1000 mg p.o. every night at bedtime. 5. Depakote Extended Release 250 mg every night at bedtime. 6. Colace 100 mg p.o. twice daily. 7. Pepcid 20 mg p.o. b.i.d. 8. Keppra 500 mg p.o. twice daily. 9. Pepcid 20 mg p.o. b.i.d. PATIENT'S NAME: GUANACO HUSSEIN [facility] AGE: 61 Y [address] ROOM: G3433 [place] [address] LOCATION: [facility] ADMIT DATE: 06/05/2017 History & Physical DISCHARGE DATE: FAMILY PHYSICIAN: Shelby Garcia APRN ATTENDING PHYSICIAN: Noé Wilson 10. Keppra 500 mg twice daily. 11. Lopressor 25 mg p.o. twice daily. 12. Theravite 1 tablet p.o. daily. 13. Xarelto 20 mg p.o. daily. 14. Restoril 30 mg p.o. at bedtime. 15. Effexor XR 75 mg p.o. daily. 16. The patient owns medication Viviscal 2 tablets p.o. daily supplemental. 17. Tylenol 325 mg to 650 q.4 h., do not exceed acetaminophen 4 g q.24 h. 18. Dilaudid 2 mg p.o. q.2 h. as needed. 19. Reglan 10 mg p.o. q.6 h. as needed. 20. MiraLAX 17 g p.o. p.r.n. as needed. 21. Phenergan 25 mg q.6 h. as needed. 22. Maxalt-COTTRELL OPERATOR 10 mg q.6 h. p.r.n. as needed. 23. Decadron 2 mg p.o. b.i.d. PAST HISTORY OF SIGNIFICANCE: 1. History of multiple syncopal episodes. 2. Paroxysmal atrial fibrillation. 3. Migraine headaches. 4. Generalized weakness. At the present time, she is able to comprehend, express without difficulty. Today, CBC were as follows. white BC 8.5, RBC 2.79, hemoglobin 10.0, hematocrit 30.1, and platelets 361. CMS; sodium 135, potassium 4.4, chloride 96, CO2 34, BUN 20, creatinine 0.6, and glucose 109. UA within normal limits with gross 3+ amorphous. EGFR is more than 90. Prealbumin 33. She will be put on intensive PT, OT, Speech 3 hours per day, 15 hours per week. She will be kept on seizure precautions and she is on regular diet at the present time. We will keep on Dr. Wade, Dr. Gutierrez, and Dr. Ferrell, sales lead generator and hospitalist to follow as necessary. All the above was explained to her. She verbalized understanding and agreement with plan of care. PATIENT'S NAME: GUANACO HUSSEIN [facility] AGE: 61 Y [address] ROOM: [place] [address] LOCATION: [facility] ADMIT DATE: 06/05/2017 History & Physical DISCHARGE DATE: FAMILY PHYSICIAN: Shelby Garcia APRN ATTENDING PHYSICIAN: Noé Wilson MD WMHermelindo/modl /[id number] D: [id number] T: [id number] HISTORY & PHYSICAL
--- NOTE | ~2017-06-05 | DS ---
PATIENT'S NAME: GUANACO HUSSEIN [facility] AGE: 61 Y [address] ROOM: G3433 [place] [address] LOCATION: [facility] ADMIT DATE: 06/05/2017 Discharge Summary DISCHARGE DATE: FAMILY PHYSICIAN: hSelby Garcia APRN ATTENDING PHYSICIAN: Noé Rios [facility] COURSE: This 61-year-old lady was admitted to rehab unit at [facility] on 06/05/2017. 1. Unstable gait. 2. Dependent activities of daily and self-care. 3. Left-side weakness with decreased coordination with the left upper and lower extremity, at high risk of seizure disorder with difficulty with her speech, orientation at one time, improved. 4. She is status post on 05/22/2017 craniotomy, right frontoparietal and excision of glioma, details on record. PHYSICAL EXAMINATION: GENERAL: She is at the present time on 06/11/2017, alert, oriented x3, feels good. No complaints. VITAL SIGNS: Blood pressure 107/62, temperature 97.6, pulse 80, respirations 16. She is able to ambulate up to 600 feet x1 with contact guard assistance at times only for safety with cuing. INSTRUCTIONS: She is going to continue on outpatient basis PT, OT, and speech twice per week for 4 weeks. I will see her thereafter. She will follow with me in [address] Wade, Dr. Gutierrez, and the railroad firer as each sees fit. MEDICATIONS: She is on the following medications: 1. Cordarone 200 mg p.o. twice daily. 2. Os-Sumanth D 500 mg 3 times daily. 3. Decadron 2 mg p.o. twice daily. 4. Depakote extended release 1000 mg every night at bedtime. 5. Depakote 250 p.o. every night at bedtime. 6. Colace 100 mg p.o. b.i.d. 7. Pepcid 20 mg twice daily p.o. 8. Keppra 500 mg twice daily. 9. Lopressor 25 mg twice daily. 10. Theravite 1 tablet p.o. daily. 11. Xarelto 20 mg p.o. daily. 12. Restoril 30 mg p.o. at night. 13. Effexor XR 75 mg p.o. daily. PATIENT'S NAME: GUANACO HUSSEIN [facility] AGE: 61 Y [address] ROOM: [address] [address] LOCATION: [facility] ADMIT DATE: 06/05/2017 Discharge Summary DISCHARGE DATE: FAMILY PHYSICIAN: Shelby Garcia APRN ATTENDING PHYSICIAN: Noé Rios The patient's own medications: 1. Viviscal 2 tablets p.o. daily. 2. Os-Sumanth D as stated above. FINAL DIAGNOSES: 1. Unstable gait. 2. Dependent activities of daily and self-care. 3. Status post on 05/22/2017 craniotomy right frontoparietal and gross excision of glioma with slight weakness of the left side with slurred speech, improving. 4. Osteoporosis. 5. At risk of seizure disorder. 6. Reflux gastric disease. 7. Atrial fibrillation with controlled ventricular rate, at the present time stable. 8. Hypertension. 9. Depression. ACTIVITY: The patient is not to operate any mechanical device. Should not drive until she is re-evaluated. She is also advised to avoid alcohol beverage for the time being. All the above was explained to her in detail. She verbalized understanding and agreement with plan of care. NOÉ RIOS MD WMS/modl /[id number] d: 06/12/17 0138 t: 06/12/17 0719, DISCHARGE SUMMARY
[~2017-06-05 14:45] MED LIST changes: +CLIMARA PRO PA1 EACH TOP; +EFFEXOR XR75 MG PO; +FIORINAL WITH1 EACH PO; +MAXALT MLT10 MG PO; +OSCAL + D500 MG PO; +PHENERGAN25 M1 PO; +RESTORIL30 MG PO; +THERA-VITE W/ B1 TAB PO
[2017-06-05] MEDS ORDERED: FIORICET PO (17:31)
[2017-06-05] MEDS ORDERED: VIVISCAL PO (17:34)
[2017-06-05 18:05] LABS: BILIRUBIN URINE NEGATIVE (NEGATIVE); BLOOD URINE NEGATIVE /UL (NEGATIVE); COLOR URINE YELLOW (YELLOW); GLUCOSE URINE NEGATIVE (NEGATIVE); KETONE URINE 15 mg/dL (NEGATIVE); LEUKOCYTES URINE 100 /UL (NEGATIVE); NITRITE URINE NEGATIVE (NEGATIVE); PROTEIN URINE NEGATIVE (NEGATIVE); SPEC GRAVITY URINE 1.015 (1.003-1.035); TURBIDITY URINE 3+ (CLEAR); UROBILINOGEN URINE NORMAL (NORMAL)
[2017-06-05 18:16] LABS: EPITHELIAL URINE 0-2 #/HPF (NEGATIVE); RBC URINE 0-2 #/HPF (NEGATIVE)
[2017-06-05 18:17] LABS: AMORPHOUS URINE 3+ (NEGATIVE); BACTERIA URINE RARE (NEGATIVE)
--- NOTE | 2017-06-05 19:03 | NUR ---
Significant Event:PATIENT ADMITTED TO ROOM 3433 FROM [facility] TODAY VIA WHEELCHAIR AT 1450. TRANSFERS WITH SBA AND GAIT BELT. ALERT AND ORIENTED BUT IS FORGETFUL. ORIENTED TO UNIT. NEEDS REMINDED TO CALL FOR ASSISTANCE. SHE IS USED TO GETTING UP. LAST BM WAS YESTERDAY. REPORTS HAVING A HEADACHE. GIVEN TYLENOL AT 1553 THIS AFTERNOON. TAKES MEDS WHOLE WITH WATER. IS A CONFIDENTIAL PATIENT. HERE MOST OF THE AFTERNOON. HAS AN INCISION ON HER RIGHT SIDE OF HER HEAD WHICH IS HEALING WELL. STRENGTH IS EQUAL AND MODERATE FOR UPPER AND LOWER EXTREMITIES. NO OTHER COMPLAINTS. Follow up:
--- NOTE | 2017-06-06 02:28 | NUR ---
Significant Event: Pt alert and oriented x3. cooperative with cares. SBA. denies any dizziness through out the shift. complaints of headache earlier in shift requested Diladid, given with relief. denies return of headache. pt has some double vision. IV in left hand SL. tele on no calls. VSS. RA. slept on and off through out the night. pt expressed her excitment to start therapy. in good spirits. Follow up:
[2017-06-06 05:27] LABS: HEMATOCRIT 30.1 % (33.0-46.0); IMMATURE GRANULOCYTE # 0.1 K/uL (0.0-0.3); IMMATURE GRANULOCYTE % 1.4 %; LYMPHOCYTE # 1.3 K/uL (0.8-4.0); LYMPHOCYTE % 15.2 %; MCH 35.8 pg (27.0-34.0); MCHC 33.2 gm/dL (32.0-36.5); MCV 107.9 fl (83.0-98.0); MONOCYTE # 0.7 K/uL (0.0-1.0); MONOCYTE % 7.9 %; MPV 9.2 fl (9.4-12.4); NEUTROPHIL # (ANC) 6.4 K/uL (1.8-7.8); NEUTROPHIL % 75.5 %; NRBC % 0 /100WBC (0-0.00); RBC 2.79 M/uL (3.50-5.50); RDW-CV 13.1 % (11.9-14.6); WBC 8.5 K/uL (4.0-11.0)
[2017-06-06 05:32] LABS: PLATELET COUNT 361 K/uL (150-450)
[2017-06-06 05:46] LABS: ALBUMIN 2.5 gm/dL (3.5-5.0); ALK PHOS 47 IU/L (33-138); ALT 29 IU/L (12-78); ANION GAP 9.4 (10.0-19.0); AST 9 IU/L (10-40); BLOOD UREA NITROGEN 20 mg/dL (6-24); CALCIUM 8.2 mg/dL (8.5-10.5); CHLORIDE 96 mMol/L (96-110); CO2 34 mMol/L (22-32); CREATININE 0.6 mg/dL (0.5-1.1); POTASSIUM 4.4 mMol/L (3.7-5.1); SODIUM 135 mMol/L (135-145); TOTAL PROTEIN 5.4 g/dL (6.0-8.4)
[2017-06-06 05:47] LABS: TOTAL BILIRUBIN 0.3 mg/dL (0.0-1.5)
--- NOTE | 2017-06-06 08:33 | NUR ---
D: Therapeutic Recreation Initial Assessment on the 06/06/17. I: Patient seen for 2 units at 833 to begin initial evaluation. R: Patient's current living situation and status: house in town Home entrance steps: 0 Living with: Spouses name: Wade # of children: 2 (none close) Driving: yes, spouse does drive Ambulating: I Equipment: N/A Hand Dominance: Right Industrial Pharmacist strength: N/T Eye sight: glasses, blurred/double vision Reading ability: N/T Hearing: no problem Speech: clear Cognition: alert Comprehension: good Following directions: yes Initiating: yes Eye contact: good Affect: bland >< bright COMMUNITY INVOLVEMENT: working part-time, out to eat, grocery shopping, roman catholic, visit friends, travel LEISURE INTERESTS: read (books), some TV, movies, cat - Candis, word finds, crossword, computer Patient is referred by medical staff for treatment and evaluation in the following areas: Community Skills, Functional Leisure Skills, Participation, Leisure Education/Behaviors, Family Education. Information obtained: Interview, Chart Review, Observation, other. BARRIERS TO LEISURE: Physical, ( on meds for anxiety) Patient determined to be: APPROPRIATE FOR THERAPEUTIC RECREATION ASSESSMENT. TREATMENT WILL INCLUDE: Community living skills training Functional leisure development Physical skills development Leisure education Emotional/behavioral adaptation Family education Community resources/packet TARGET EQUIPMENT/INFORMATION: Parking Permit WILL NEED Community Resources Energy conservation in community setting Van/Service/Taxi Scrip Adapted Leisure Equipment Stress management/Relaxation techniques Functional car transfers Leisure Education Behaviors: Attitude, Awareness, Participation. Patient functional skills level and potential: Good, pt demonstrates fair mobility with concerns for coping and adjustment. Patient oriented ot TR services on Rehab unit. Pt/family provided input into goals setting and plan of care. Pt goal is to resume prior life-style. P: Target date set with personal goals established. Will continue with POC focusing on pt/family training and education. For additional information please see Nursing Data Base, PT, OT, CM, ST, initial assessments to [facility] and Interdisciplinary Assessments.
--- NOTE | 2017-06-06 15:24 | NUR ---
Significant Event:PATIENT ALERT AND ORIENTED, IS A LITTLE FORGETFUL AT TIMES. VSS. TRANSFERS WITH SBA AND GAIT BELT. IS STEADY ON HER FEET. WOKE UP WITH A MILD HEADACHE. REQUESTED 1 TYLENOL WITH 1 DILAUDID AND STATED THAT THAT WORKED WELL FOR HER MOST DAYS. GIVEN AT 0823. IN AND OUT TO VISIT THROUGHOUT THE DAY. INCISION HEALING WELL ON HEAD. TOLERATING THERAPY WELL. NO OTHER COMPLAINTS. Follow up:
--- NOTE | 2017-06-07 04:13 | NUR ---
Significant Event: Confidential patient. A&Ox3, patient states she has double vision at times. VSS on room air. Transfers with SBA with GB to bathroom. Patient will take self to bathroom with out assistance, alarms applied. PIV in right hand SL with no complications. Complains of headache, tylenol and dilaudid given at HS with relief noted. BM tonight. Follow up: alarms for safety.
--- NOTE | 2017-06-07 15:30 | NUR ---
Significant Event: Alert and oriented x 3. Up with SBA and gait belt. Headache throughout the day. Takes 1 tylenol at 1455 and 1 dilaudid. present throughout the day. Incision to R) side of head healing well. Confidential patient. IV to right hand SL. Cooperative with cares. Last BM on the . Follow up:
--- NOTE | 2017-06-08 03:42 | NUR ---
Significant Event: Patient is alert and oriented, VSS. Up with SBA with GB. Gait is steady. Has had no c/o of pain. C/O of headache yesterday and requested 1 Dilaudid and 1 Tylenol. Surgical incision to the right side of her head, well approximated no redness. Saline lock to her right hand flushes well with good blood return. Follow up: Confidential patient. HX of A Fib.
--- NOTE | 2017-06-08 16:07 | NUR ---
Significant Event:PATIENT ALERT AND ORIENTED THIS SHIFT. CAN BE FORGETFUL AT TIMES. VSS. TRANSFERS WITH SBA AND GAIT BELT. COMPLAINTS OF A HEADACHE FIRST THING THIS AM AND LATER AFTER LUNCH. GIVEN TYLENOL 1 TAB PO AND DILAUDID 2MG PO TOGETHER FOR PAIN X 2 DOSES. LAST DOSE AT 1445. REPORTS IT DOES HELP. TOLERATED THERAPY WITHOUT DIFFICULTY TODAY. DID HAVE LOTS OF COMPANY TODAY FROM OUT OF TOWN. 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 NO OTHER COMPLAINTS. Follow up:
--- NOTE | 2017-06-09 04:07 | NUR ---
Significant Event: Patient alert and oriented. VSS. Up with SBA in room. Gait is steady. Is able to do her own cares. Denies pain or discomfort t/o the night. Very tired last night from having company. Wanted meds and went to sleep early. Requests to have her mouth rinse more frequently t/o the day. Having trouble scaning the bottle. Takes meds whole with water. Follow up:
--- NOTE | 2017-06-09 16:47 | NUR ---
Significant Event:PATIENT ALERT AND ORIENTED THIS SHIFT. VSS. TRANSFERS WITH SBA AND GAIT BELT. WALKED WITH SOME AFTER OK WITH RENY IN OT. PATIENT VERY STEADY ON HER FEET. WAKES UP WITH HEADACHES USUALLY BUT OTHERWISE HAS DENIED PAIN ALL SHIFT. GIVEN DILAUDID 1 TAB WITH 1 TYLENOL THIS AM AT 0938 AND THEN AGAIN AFTER HER NAP AT 1620. THIS HELPS HER HEADACHES WELL. HAS HAD SOME FAMILY VISIT TODAY. NO OTHER COMPLAINTS. Follow up:
--- NOTE | 2017-06-10 03:45 | NUR ---
Significant Event: Patiet is alert and oriented, VS hypotensive at 98/55 then 102/62 with meds. Up with GB/SBA. Gait slightly unsteady at times. Showered last night was able to do own cares with SBA. Icision to the right side of her head healing well no redness. Jewels have been removed. Has trobule with double vision right side of her glasses have been taped to correct this. States she has numbness to the right side of her forehead. Gets headaches takes 1 Tylenol and 1 Dilaudid last dose at 0240. Takes meds whole with water. Has equal strength to bilateral extermities. Saline lock to her left hand flushes no blood return. Follow up: Confidental patient. Possible discharge on Saturday.
--- NOTE | 2017-06-10 11:23 | NUR ---
A-SCREENED D/T LOS; NEW ADMIT TO [facility] S/P EXCISTION OF BRAIN TUMOR HT: 68 IN. [facility] ADMIT WT: 58.1 KG; CBW 61.5 KG. BMI: 20.5 MEDS: EFFEXOR XR, MVI, OSCAL+D, DECADRON, RESTORIL, KEPPRA, PEPCID, COLACE, DEPAKOTE, PHENERGAN, PRN BOWEL MEDS, REGLAN DIET RX: REGULAR. ENSURE BID AND ENSURE CLEAR QD. PO INTAKE 75-100% FOR THE MOST PART SINCE ADMIT TO [facility]. EST NUTR NEEDS: [id number] KCALS (25-30 KCALS/KG) 62-68 GM PROTEIN (1.0-1.1 GM/KG PROTEIN) 1 ML FLUID/KCAL D-NOT AT NUTRITION RISK; NO NUTRITION DX IDENTIFIED I-DECREASE ENSURE ENLIVE FROM BID TO QD AND D/C ENSURE CLEAR M/E-1)F/U PO INTAKE, WT, AND POC IN 7-10 DAYS 2)ASSIST NEEDED
--- NOTE | 2017-06-10 15:10 | NUR ---
Pt is alert and oriented to person, place and time. PT is pleasant and coopertive. Pt c/o a headache at 1500 and was given tylenol/dilaudid and then went outside with therapy. Pt took a good nap this shift. She stated that it was "much needed." Pt ambulates 1 stand by assist in halls. Pt tolerates activity. Pt continues to wear the tape over her glasses due to double vision. Pt has no other complaints this shift. Pt did request that her magic mouth was be given with each meal due to sore throat. IV discontinued this shift.
--- NOTE | 2017-06-11 14:44 | NUR ---
D: TR progress note for 06/11/17. I: Pt seen for 2 units at 1333 for community integration skills building, functional transfers, and safety awareness. R: Pt seen for functional skills building working on mobility, safety, functional transfers and community skills in anticipation for discharge back into community with family. Pt transferred sit > stand from EOB SBA, ambulated to/from bathroom SBA, SBA for toilet transfers and mod I for clothing and karli cares. Pt given verbal instructions on proper technique prior to completing transfers. Pt transferred sit > stand from WC SBA, ambulated 5 feet with walker to/from vehicle SBA and transferred in/out of vehicle SBA with good recall on hand placement. Pt was SBA for BLE management and positioning of self with seat surface adapted using trash bag to ease task. Pt tolerated ride with no C/o pain, discomfort or nausea independent with verbal instructions to navigate to own home without difficulty. P: Will continue to see to address goals and plan of care.
--- NOTE | 2017-06-11 16:16 | NUR ---
Significant Event:PATIENT ALERT AND ORIENTED THIS SHIFT. VSS. TRANSFERS INDEPENDANTLY. BP BELOW PARAMETERS THIS AM SO BETA RUDY HELD. RESTS IN BED BETWEEN THERAPIES. COMPLAINTS OF A HEADACHE THIS MORNING AND GIVEN 1 TYLENOL AND 1 DILAUDID AT 1035. TOLERATING THERAPIES WELL. PLAN IS FOR DISCHARGE HOME TOMORROW. NO OTHER COMPLAINTS. Follow up:
[2017-06-11] MEDS ORDERED: CORDARONE,PACE200 MG PO (16:18)
[2017-06-11] MEDS ORDERED: DECADRON1 MG PO (16:22)
[2017-06-11] MEDS ORDERED: COLACE100 MG PO (16:24)
[2017-06-11] MEDS ORDERED: KEPPRA500 MG PO (16:26)
[2017-06-11] MEDS ORDERED: LOPRESSOR25 MG PO (16:28)
--- NOTE | 2017-06-12 03:01 | NUR ---
Significant Event: PATIENT IS ALERT AND ORIENTED. STEADY ON FEET. UP INDEPENDENTLY IN ROOM BUT REQUESTED ALARM BE IN PLACE DURING NIGHT IN CASE SHE WOKE UP CONFUSED. COMPLAINS OF HEADACHE. TAKES TYLENOL/DILAUDID FOR THIS. Follow up: PLAN TO BE DISCHARGE TODAY.
--- NOTE | 2017-06-12 11:10 | NUR ---
PATIENT DISCHARGED TO HOME WITH . VERY HELPFUL AND ATTENTIVE. PATIENT AMBULATING AD GATO IN ROOM, COOPERATIVE WITH INSTRUCTIONS. KRAMES, PRESCRIPTIONS, AND THERAPY NOTES GIVEN. PATIENT AND WILL SET UP OUTPATIENT THERAPY. DR. CEVALLOS AND HIS NURSE KEIRA DISCUSSED RADIATION/CHEMO PLANS. CAME TODAY AND DISCUSSED FOLLOW UP FOR 3 WEEKS. PATIENT AND EXPRESSED CONFIDENCE TO FOLLOW THROUGH WITH ORDERS.
--- NOTE | 2017-06-14 11:23 | NUR ---
[facility] Case Management Prefunctioning and Psycho-Social Initial Assessment for 06/05/17, Case conference note for 06/11/17 and Discharge Note for 06/12/17 D: Initial Keno Writer/RunnerVacuum Conditioner Operator, Case Conference Note and Discharge Note. I: Input from: patient, family, Dr. Wilson, Janie Marie SCRUB TECH R: Reason for admission: right frontal craniotomy with tumor exision--glioblastoma. Admission Date to [facility]: 06/05/17 Admission Date to Hospital: 05/17/17 Prior level of functioning: patient was independent with adl's and household prior to hospitalization. Prior living situation: one story house with basement. Financial resources/expectations: patient has [employer]. All days certed. Resources used: walk-in shower with door, shower chair. Resources available: HHC, outpatient therpay, SNF, [facility], [facility], DME Family support available: family Understands nature of health condition: yes Recognizes impact of health condition on lifestyle: yes Vocational/Educational: pharmacist Behavior/Emotional needs: cues for safety. Monitor for signs and symptoms of depression and anxiety. Legal concerns: none. Discharge goal: home with support of . Assessment: Mile is a 61 year old woman from [place], [place] admitted after a tumor excision. Has good family support. Plan is for patient to d/c on 06/12/17 with outpatient therapy. No equipment needed at this time. Will call patient next week to see how she is doing post discharge. Orientation to the program and CM services completed with Mile. Initial plan of care and estimated length of stay discussed, disclosure statement reviewed including patient assessment rights. P: Target date and individual goals established. Please see POC for details. For additional information please see Nursing Data Base, PT, OT, TR, ST, Initial assessments to [facility].
== END 2017-06-12 11:06 | disposition disaster alternative care site (69) | DRG 55 ==
LOC: GIRP 14:45
PROVIDERS: ADMIT Physical Medicine & Rehabilitation
DX: C71.9 Malignant neoplasm of brain, unspecified (principal); G81.94 Hemiplegia, unspecified affecting left nondominant side; R26.81 Unsteadiness on feet; M81.0 Age-related osteoporosis without current pathological fracture; F32.9 Major depressive disorder, single episode, unspecified; K21.9 Gastro-esophageal reflux disease without esophagitis